=== PATIENT | female | born 1960 | race Caucasian/White ===

== ENCOUNTER 2016-12-25 12:55 | Emergency (ER) | payer BC, MEDICAID ==
[~2016-12-25] VITALS: Wt 49.0 kg
[~2016-12-25 12:55] MED LIST: FENO48TA4 PO; FER325 PO
[2016-12-25] MEDS ORDERED: KETOROLAC 15 MG INJ IV STA (13:13)
[2016-12-25] MEDS ORDERED: SOD CHLORIDE 0.9% 500 ML IV STA (13:13)
[2016-12-25] MEDS ORDERED: ONDANSETRON 4 MG INJ IV STA (13:13)
[2016-12-25] MEDS ORDERED: DICYCLOMINE 10 MG CAP PO ONE (13:30)
--- NOTE | 2016-12-25 13:33 | ERD ---
ER Documentation Chief Complaint Date/Time DATE: 12/25/16 TIME: 13:30 Chief Complaint VOMITING, DIARRHEA, MILD ABD PAIN, ONSET 1 DAY HPI 56-year-old female who has a history of hypertension presents to the emergency room complaining of nausea vomiting and diarrhea. A small offset printer was used. She describes approximately 1-2 days of symptoms including nonbloody nonbilious emesis, cramping, periumbilical abdominal discomfort with the associated loose stools. No recent travel, sick contacts, antibiotics, no abdominal surgical history. Pain is mild, 2 out of 10 currently. ROS All systems reviewed and are negative except as per history of present illness. Medications Home Meds Active Scripts Ondansetron (Ondansetron Odt) 4 Mg Tab.rapdis, 4 MG PO Q6H Y for NAUSEA AND/OR VOMITING, #30 TAB Prov:JOSEPH ZAMAN MD 12/25/16 Dicyclomine Hcl* (Bentyl*) 10 Mg Capsule, 10 MG PO QID Y for abdominal cramping , #30 CAP Prov:JOSEPH ZAMAN MD 12/25/16 Ferrous Sulfate* (Ferrous Sulfate*) 325 Mg Tabec, 325 MG PO BID, #60 TAB 2 Refills Prov:GALDINO YOU S. 05/16/16 Fenofibrate Nanocrystallized* (Fenofibrate*) 48 Mg Tablet, 48 MG PO DAILY for 30 Days, #30 TAB 1 Refill Prov:GALDINO YOU S. 05/16/16 Allergies Allergies: Coded Allergies: No Known Allergy (Unverified , 12/25/16) PMhx/Soc History of Surgery: Yes (hysterectomy) Anesthesia Reaction: No Hx Neurological Disorder: No Hx Respiratory Disorders: No Hx Cardiac Disorders: No Hx Psychiatric Problems: No Hx Miscellaneous Medical Probl: No Hx Alcohol Use: No Hx Substance Use: No Hx Tobacco Use: No Smoking Status: Never smoker FmHx Family History: No diabetes Physical Exam Vitals Vital Signs Date Time Temp Pulse Resp B/P Pulse Ox O2 Delivery O2 Flow Rate FiO2 12/25/16 12:57 98.1 106 18 197/87 98 Physical Exam General: Well developed, well nourished, no acute distress Head: Normocephalic, atraumatic. Eyes: Pupils equally reactive, EOM intact ENT: Moist mucous membranes Neck: Supple, no lymphadenopathy Respiratory: Lungs clear bilaterally, no distress Cardiovascular: RRR, no murmurs, rubs, or gallops Abdominal: Soft, non-tender, non-distended, no peritoneal signs, negative Felipe sign, no tenderness to McBurney's point : Deferred MSK: No edema, no unilateral swelling, 5/5 strength Neurologic: Alert and oriented, moving all extremities, normal speech, no focal weakness, no cerebellar signs Skin: No rash Psych: Normal mood Results 24 hrs Current Medications Medications (Trade) Dose Ordered Sig/Jamin Route PRN Reason Start Time Stop Time Status Last Admin Dose Admin Sodium Chloride (NS) 500 ml @ 500 mls/hr Q1H STAT IV 12/25/16 13:13 12/25/16 14:12 DC 12/25/16 13:32 Ondansetron HCl (Zofran Inj) 4 mg ONCE STAT IV 12/25/16 13:13 12/25/16 13:28 DC 12/25/16 13:32 Ketorolac Tromethamine (Toradol) 15 mg ONCE STAT IV 12/25/16 13:13 12/25/16 13:28 DC 12/25/16 13:32 Dicyclomine HCl (Bentyl) 10 mg ONCE ONCE PO 12/25/16 13:30 12/25/16 13:31 DC Procedures/MDM MEDICAL DECISION MAKING: Patient's blood pressure was elevated (>120/80) but appears stable without evidence of hypertensive emergency or urgency. The patient was counseled about the risks of hypertension and urged to pursue outpatient monitoring and therapy within a week with their primary care physician. The patient's symptoms are very consistent with likely viral process. The patient has a benign abdominal exam without a fever without signs of significant dehydration. She exhibits no clinical signs or symptoms that would be concerning for acute intra-abdominal process such as bowel obstruction, acute appendicitis or hepatobiliary process. The patient is resting comfortably and grossly asymptomatic currently. I believe gentle hydration, symptom control be most appropriate for this patient. I do not believe the laboratory testing is necessary, no indication for CT imaging. I did discuss return precautions including worsening pain, migratory pain, fever and the patient verbalized understanding. No indication for antibiotics. ER COURSE: The patient was given IV fluids, oral Bentyl, Toradol, Zofran, repeat abdominal exam was again benign. At this time the patient is safe for discharge with close primary care follow-up and return precautions as discussed above. I kept the patient and/or family informed of laboratory and diagnostic imaging results throughout the emergency room course. DISPOSITION PLAN: We discussed follow up with the patient's primary care doctor within 24 to 48 hours as needed. We also discussed return to the emergency room for worsening symptoms or worsening condition. Outpatient referral: None required Discharge Medications: Gilles Duenas Departure Diagnosis: Primary Impression: Nausea, vomiting, and diarrhea Additional Impression: Periumbilical abdominal pain Condition: JOSEPH Sweeney MD Dec 25, 2016 13:33
[2016-12-25] MEDS ORDERED: DICY10CA60 PO (14:18)
[2016-12-25] MEDS ORDERED: ONDA4TAB14 PO (14:18)
== END 2016-12-25 14:35 | disposition home or self-care (01) ==
LOC: E/R 12:55
DX: R11.2 Nausea with vomiting, unspecified (principal); R19.7 Diarrhea, unspecified; R10.33 Periumbilical pain
CPT/HCPCS: 96374; 96375; J1885; J2405; J7040; Z7502; Z7610

== ENCOUNTER 2017-02-11 19:31 | Inpatient (IN) | payer BC ==
[~2017-02-11] VITALS: Ht 162.6 cm; Wt 51.5 kg
[~2017-02-11 19:31] MED LIST changes: +DICY10CA60 PO; +ONDA4TAB14 PO
[2017-02-11] MEDS ORDERED: SOD CHLORIDE 0.9% 1,000 ML IV STA ×2 (20:00→22:08)
[2017-02-11] MEDS ORDERED: KETOROLAC 30 MG INJ IV STA (20:00)
[2017-02-11 20:42] LABS: HEMATOCRIT 38.3 % (37.0-47.0); HEMOGLOBIN 12.8 g/dl (12.0-16.0); MEAN CORPUSCULAR HEMOGLOBIN 29.2 pg (29.0-33.0); MEAN CORPUSCULAR HGB CONC 33.4 g/dl (32.0-37.0); MEAN CORPUSCULAR VOLUME 87.2 fl (82.0-101.0); MEAN PLATELET VOLUME 12.8 fl (7.4-10.4); PLATELET COUNT 115 10^3/UL (140-415); RED BLOOD COUNT 4.39 10^6/ul (4.20-5.40); RED CELL DISTRIBUTION WIDTH 13.5 % (11.5-14.5)
--- NOTE | 2017-02-11 20:50 | RADRPT ---
PROCEDURE: Ultrasound of the left lower extremity venous system. CLINICAL INDICATION: Left leg pain and swelling, deep venous thrombosis TECHNIQUE: Russ scale with and without compression, color doppler, spectral doppler of the venous system of the left lower extremity was performed. Venous augmentation maneuvers were utilized. COMPARISON: No prior studies are available for comparison. FINDINGS: Common femoral vein: Patent. Femoral vein: Patent. Popliteal vein: Patent. Calf veins: Patent. No soft tissue abnormalities are identified. IMPRESSION: No evidence of a deep vein thrombosis within the left lower extremity. RPTAT: AADD .Maciel Genao MD, MD Date Time Electronically viewed and signed by .Maciel Genao MD, on 02/11/2017 20:49 .B/
[2017-02-11 20:53] LABS: POSITIVE DIFF @See below
[2017-02-11 21:10] LABS: ADD UMIC YES; UR ASCORBIC ACID NEGATIVE (NEGATIVE); UR BILIRUBIN (Dip) NEGATIVE (NEGATIVE); UR BLOOD (Dip) NEGATIVE (NEGATIVE); UR CLARITY CLEAR (CLEAR); UR COLOR YELLOW (YELLOW); UR GLUCOSE (Dip) 3+ mg/dL (NEGATIVE); UR KETONES (Dip) NEGATIVE (NEGATIVE); UR LEUKOCYTE ESTERASE (Dip) NEGATIVE Leu/ul (NEGATIVE); UR NITRITE (Dip) NEGATIVE (NEGATIVE); UR RBC 1 /HPF (0-5); UR SPECIFIC GRAVITY (Dip) 1.017 (1.003-1.030); UR TOTAL PROTEIN (Dip) 1+ mg/dl (NEGATIVE); UR UROBILINOGEN (Dip) NEGATIVE (NEGATIVE)
[2017-02-11 21:17] LABS: ALBUMIN 4.1 g/dl (3.3-4.9); ALBUMIN/GLOBULIN RATIO 1.24; BILIRUBIN,INDIRECT 2.6 mg/dl (0-1.1); BILIRUBIN,TOTAL 2.6 mg/dl (0.2-1.3); CALCIUM 8.8 mg/dl (8.4-10.2); CREATININE 0.72 mg/dl (0.44-1.00); POTASSIUM 4.3 mmol/L (3.5-5.1); TOTAL PROTEIN 7.4 g/dl (6.1-8.1)
[2017-02-11] MEDS ORDERED: SOD CHLORIDE 0.9% 600 ML IV STA (21:17)
[2017-02-11] MEDS ORDERED: VANCOMYCIN 1 GM (PMX) 250 ML IVPB SCH (21:30)
[2017-02-11] MEDS ORDERED: PIPER-TAZO 3.375 GM IV (PMX) 100 ML IVPB ONE (21:30)
[2017-02-11 21:41] LABS: METAMYELOCYTES %M 2 % (0-0); MONOCYTE # 0.3 10^3/ul (0.3-0.9); MONOCYTES % (M) 2 % (0-11); NEUTROPHIL # 10.7 10^3/ul (1.6-7.5)
[2017-02-11] MEDS ORDERED: ACETAMINOPHEN 500 MG TAB PO STA (22:09)
[2017-02-11] MEDS ORDERED: SOD CHLORIDE 0.9% 1,000 ML IV SCH (22:11)
[2017-02-11] MEDS ORDERED: INSULIN LISPRO 100 UNIT/ML VIAL SC STA (22:17)
--- NOTE | 2017-02-11 22:18 | ERA ---
ER Documentation Chief Complaint Date/Time DATE: 02/11/17 TIME: 22:12 Chief Complaint fever x 2 days, left leg pain x 2 days HPI This is a 56-year-old female with a history of diabetes on insulin who presents to the emergency room for evaluation of left leg pain for the past 2 days. She also states that she has had a fever on and off for the past 2 days and has been taking Tylenol. Her last dose of Tylenol was this morning. The patient localizes the pain to the left leg and denies any radiation of the pain and denies any trauma associated with this. She came to the ER today for evaluation. ROS All systems reviewed and are negative except as per history of present illness. Medications Home Meds Active Scripts Ondansetron (Ondansetron Odt) 4 Mg Tab.rapdis, 4 MG PO Q6H Y for NAUSEA AND/OR VOMITING, #30 TAB Prov:JOSEPH ZAMAN MD 12/25/16 Dicyclomine Hcl* (Bentyl*) 10 Mg Capsule, 10 MG PO QID Y for abdominal cramping , #30 CAP Prov:JOSEPH ZAMAN MD 12/25/16 Ferrous Sulfate* (Ferrous Sulfate*) 325 Mg Tabec, 325 MG PO BID, #60 TAB 2 Refills Prov:GALDINO YOU S. 05/16/16 Fenofibrate Nanocrystallized* (Fenofibrate*) 48 Mg Tablet, 48 MG PO DAILY for 30 Days, #30 TAB 1 Refill Prov:GALDINO YOU SCandelaria 05/16/16 Allergies Allergies: Coded Allergies: No Known Allergy (Unverified , 12/25/16) PMhx/Soc History of Surgery: Yes (hysterectomy, left thigh sx x3 year ago at [facility]) Anesthesia Reaction: No Hx Neurological Disorder: No Hx Respiratory Disorders: No Hx Cardiac Disorders: Yes (HTN) Hx Psychiatric Problems: No Hx Miscellaneous Medical Probl: Yes (DM 2) Hx Alcohol Use: No Hx Substance Use: No Hx Tobacco Use: No Smoking Status: Never smoker Physical Exam Vitals Vital Signs Date Time Temp Pulse Resp B/P Pulse Ox O2 Delivery O2 Flow Rate FiO2 02/11/17 19:33 100.1 108 20 122/60 99 Physical Exam INITIAL VITAL SIGNS: Reviewed by me GENERAL: The patient is well developed and appropriate for usual state of health in no apparent distress, however is warm to touch HEENT: Pupils equal, round, and reactive to light. EOMI. There is no scleral icterus. NECK: C-spine is soft and supple, there is no meningismus. There is no cervical lymphadenopathy. LUNGS: Clear to auscultation bilaterally. There are no rales, wheezes or rhonchi. HEART: Tachycardic, no murmurs, clicks, rubs or gallops. ABDOMEN: Soft, non-tender, non-distended. There are bowel sounds in all four quadrants. No rebound or guarding. EXTREMITIES: There is no peripheral cyanosis or edema. No focal swelling or erythema. NEUROLOGICAL: The patient moves all four extremities with 5/5 strength. Cranial nerves II - XII are intact. Normal gait. Alert and oriented SKIN: Cellulitis of left thigh extending to the left mid calf, no skin HEME/LYMPHATIC: There is no evidence of excessive bruising or lymphedema. PSYCHIATRIC: The patient does not appear anxious or depressed. Result Diagram: 02/11/17200902/11/172009 Results 24 hrs Laboratory Tests Test 02/11/17 19:45 02/11/17 20:10 Urine Color YELLOW Urine Clarity CLEAR Urine pH 5.0 Urine Specific [place] 1.017 Urine Ketones NEGATIVEmg/dL Urine Nitrite NEGATIVEmg/dL Urine Bilirubin NEGATIVEmg/dL Urine Urobilinogen NEGATIVEmg/dL Urine Leukocyte Esterase NEGATIVELeu/ul Urine Microscopic RBC 1/HPF Urine Microscopic WBC 3/HPF Urine Hemoglobin NEGATIVEmg/dL Urine Glucose 3+mg/dL Urine Total Protein 1+mg/dl White Blood Count 17.010^3/ul Red Blood Count 4.3910^6/ul Hemoglobin 12.8g/dl Hematocrit 38.3% Mean Corpuscular Volume 87.2fl Mean Corpuscular Hemoglobin 29.2pg Mean Corpuscular Hemoglobin Concent 33.4g/dl Red Cell Distribution Width 13.5% Platelet Count 61527^3/UL Mean Platelet Volume 12.8fl Neutrophils % % Segmented Neutrophils % (Manual) 63% Band Neutrophils % (Manual) 33% Lymphocytes % % Monocytes % % Monocytes % (Manual) 2% Eosinophils % % Basophils % % Metamyelocytes % (manual) 2% Nucleated Red Blood Cells % 0.0/100WBC Neutrophils # 10.710^3/ul Neutrophils # (Manual) 1210^3/ul Band Neutrophils # 5.610^3/ul Lymphocytes # 10^3/ul Monocytes # 0.310^3/ul Absolute Monocytes (Manual) 0.310^3/ul Eosinophils # 10^3/ul Basophils # 10^3/ul Metamyelocytes # 0.310^3/ul Nucleated Red Blood Cells # 10^3/ul Platelet Morphology Comment Macrocytosis OCCASIONAL Sodium Level 133mmol/L Potassium Level 4.3mmol/L Chloride Level 88mmol/L Carbon Dioxide Level 25mmol/L Anion Gap 24 Blood Urea Nitrogen 24mg/dl Creatinine 0.72mg/dl Glucose Level 280mg/dl Lactic Acid Level 6.6mmol/L Calcium Level 8.8mg/dl Total Bilirubin 2.6mg/dl Direct Bilirubin 0.00mg/dl Indirect Bilirubin 2.6mg/dl Aspartate Amino Transf (AST/SGOT) 36IU/L Alanine Aminotransferase (ALT/SGPT) 48IU/L Alkaline Phosphatase 58IU/L Total Protein 7.4g/dl Albumin 4.1g/dl Globulin 3.30g/dl Albumin/Globulin Ratio 1.24 Lipase 32U/L Current Medications Medications (Trade) Dose Ordered Sig/Jamin Route PRN Reason Start Time Stop Time Status Last Admin Dose Admin Sodium Chloride (NS) 1,000 ml @ 1,000 mls/hr Q1H STAT IV 02/11/17 20:00 02/11/17 20:59 DC 02/11/17 20:34 Ketorolac Tromethamine 30 mg 30 mg ONCE STAT IV 02/11/17 20:00 02/11/17 20:01 DC 02/11/17 20:34 Sodium Chloride 600 ml @ 1,000 mls/hr Q36M STAT IV 02/11/17 21:17 02/11/17 21:52 DC Vancomycin HCl 250 ml @ 125 mls/hr ONCE IVPB 02/11/17 21:30 02/11/17 23:29 02/11/17 21:52 Piperacillin Sod/ Tazobactam Sod 100 ml @ 200 mls/hr ONCE ONCE IVPB 02/11/17 21:30 02/11/17 21:59 DC Sodium Chloride (NS) 1,000 ml @ 1,000 mls/hr Q1H STAT IV 02/11/17 22:08 02/11/17 23:07 Acetaminophen (Tylenol Tab) 1,000 mg ONCE STAT PO 02/11/17 22:09 02/11/17 22:10 DC Procedures/MDM EKG: Rate/Rhythm: Sinus tachycardia QRS, ST, T-waves: [No changes consistent w/ acute ischemia] Impression: [No evidence of ischemia or arrhythmia] Chest X-ray 1V Interpreted by me: Soft Tissue: No acute abnormalities Bones: No acute abnormalities Mediastinum/Cardiac Silhouette/Lungs: [No acute abnormalities] X-ray Femur 2V Interpreted by me: Bones: No fracture Joints: No dislocation Foreign body: None, no subcutaneous gas Ultrasound left lower extremity: No DVT Patient's infectious symptoms have not stabilized and the patient is at risk of rapid decompensation. The patient will be admitted for careful hydration, antibiotic therapy, and infectious source control. Severe Sepsis Assessment: Infectious Source: Cellulitis End organ damage indicated by: [Lactate > 2.0 mmol/L Hypotension( SBP < 90 or >40 mmHG drop or MAP < 65) Acute Resp Failure (sat < 92% w/o oxygen) [employer] > 2.0 INR > 1.5 Plt < 100 Bili > 2] Severe Sepsis Managment: Blood Cultures X 2 before broad spectrum antibiotics initiated within 3 hours of recognition. 30 ml/kg NS bolus Completed Initial Lactate: 6.6 Repeat Lactate pending Critical Care: Excluding all billable procedures Time: 38 minutes Treatments/Evaluations: Emergent fluid management, while maintaining close respiratory support. Immediate broad spectrum antibiotic therapy. Simultaneous assessment for possible sources in order to direct therapy. Consideration for invasive and chemical support to prevent respiratory or cardiac collapse. Septic Shock Assessment (1 hour post 30 ml/kg fluid bolus): Hypotension (SBP < 90 or 40 mmHg drop, MAP < 65): [No] Lactic acid > 4.0 yes Perfusion Reassessment for Septic Shock: 2 hours after initial evaluation Temp 1..01, Pulse 99], RR16BP 118/74 Heart Exam: [Tachycardic] Lung Exam: [No Crackles] Capillary Refill: [Delayed] Peripheral Pulses: [Radially present] Skin: Warm, dry Hypotensive Treatment (not required for isolated lactic acid elevation): Comfort Care: No Central LIne: Not necessary Vasopressor started: None I considered further perfusion assessment with CVP measurement, SCVO2, bedside ultrasound volume assessment, passive leg raise, trial of further fluid bolus. And preceded with further fluid bolus Accepting Care Team: Current data and ongoing care discussed. Time: Time of admission Primary Provider: Jaimie miner Outstanding Data: none This is a 56-year-old female who presents to the emergency room for evaluation of left leg pain. When I evaluated this patient she was febrile, and tachycardic. The patient did have an erythematous leg consistent with cellulitis that was blanching with no skin sloughing. A septic workup was started on this patient. This patient's lab work demonstrates a white blood cell count 17,000 however her lactic acid was greater than 6. The patient was given greater than 30 cc/kg of IV normal saline. She was started on vancomycin and Zosyn in the emergency room. Femur x-ray does not reveal any signs of subcutaneous gas at this time. This patient is hemodynamically stable with a mean arterial pressure greater than 65 with no need for vasopressors. The patient will be placed in for admission at this time for IV antibiotics, IV fluids, and reassessment tomorrow morning. The patient has no signs of compartment syndrome at this time, she has got equal pulses distally and her ultrasound does not show any signs of DVT. The patient will be admitted to Dr. Kali miner Departure Diagnosis: Primary Impression: Severe sepsis Additional Impression: Left leg cellulitis Condition: Stable VERONICA TORRES DO Feb 11, 2017 22:18
--- NOTE | 2017-02-11 22:23 | RADRPT ---
PROCEDURE: XR Femur. CLINICAL INDICATION: Pain. TECHNIQUE: AP and lateral views of the left femur were obtained. COMPARISON: No prior studies are available for comparison. FINDINGS: No acute fracture or dislocation is identified. Mild diffuse soft tissue swelling is noted. Surgical clips are noted overlying left visualized pelvis. IMPRESSION: 1. No acute fracture or dislocation. 2. Mild diffuse soft tissue swelling. RPTAT: HFN .Esequiel Siu MD, MD Date Time Electronically viewed and signed by .Esequiel Siu MD, on 02/11/2017 22:23 .N/
[2017-02-11] MEDS ORDERED: ACETAMINOPHEN 325 MG TAB PO PRN (22:30)
[2017-02-11] MEDS ORDERED: ONDANSETRON 4 MG INJ IV PRN (22:30)
--- NOTE | 2017-02-11 23:24 | RADRPT ---
PROCEDURE: XR Chest. CLINICAL INDICATION: Sepsis TECHNIQUE: Single AP portable chest. COMPARISON: No prior Chest x-ray FINDINGS: The cardiomediastinal silhouette is within normal limits of size. The lungs are clear without pleur al effusion or focal consolidation. No pneumothorax. The osseous structures and soft tissues are unr emarkable. IMPRESSION: 1. No evidence for active cardiopulmonary disease. RPTAT:AAJJ Leslye Traore Physician Date Time Electronically viewed and signed by Leslye Traore Physician on 02/11/2017 23:23 RADHA/
[2017-02-11 23:32] VITALS: TEMP 98.1
[2017-02-11] MEDS ORDERED: ACET-141 PO (23:52)
[2017-02-11] MEDS ORDERED: ASPI-664 PO (23:52)
[2017-02-11] MEDS ORDERED: SS SC (23:52)
[2017-02-12 00:22] VITALS: BP 99/55; RESP 16
[2017-02-12 00:37] VITALS: Ht 162.6 cm; Wt 51.5 kg
[2017-02-12] MEDS ORDERED: INSULIN ASPART [NOVOLOG] 3 ML PEN SC STA (01:59)
[2017-02-12] MEDS ORDERED: morphine 2 MG INJ IV PRN (02:00)
[2017-02-12] MEDS ORDERED: ONDANSETRON 4 MG INJ IV PRN (02:00)
[2017-02-12] MEDS ORDERED: SOD CHLORIDE 0.9% 1,000 ML IV SCH (02:00)
[2017-02-12] MEDS: ACCU-CHEK XX SCH (02:00)
[2017-02-12] MEDS ORDERED: ACCU-CHEK XX SCH (02:00)
[2017-02-12 02:10] VITALS: BP 89/51; RESP 16
[2017-02-12] MEDS: CEFTRIAXONE 1 GM/50 ML (PMX) 50 ML IVPB SCH (02:39)
[2017-02-12] MEDS ORDERED: GLUCAGON 1 MG INJ IM PRN (03:00)
[2017-02-12] MEDS ORDERED: GLUCOSE GEL 15 GRAM TUBE PO PRN ×2 (03:00)
[2017-02-12] MEDS ORDERED: GLUCOSE GEL 15 GRAM TUBE BUCCAL PRN (03:00)
[2017-02-12] MEDS ORDERED: DEXTROSE 50% 50 ML SYRINGE IV PRN ×2 (03:00)
[2017-02-12 05:45] LABS: ABNORMAL IP MESSAGE 1; HEMATOCRIT 32.4 % (37.0-47.0); HEMOGLOBIN 10.8 g/dl (12.0-16.0); MEAN CORPUSCULAR HEMOGLOBIN 28.6 pg (29.0-33.0); MEAN CORPUSCULAR HGB CONC 33.3 g/dl (32.0-37.0); MEAN CORPUSCULAR VOLUME 85.9 fl (82.0-101.0); MEAN PLATELET VOLUME 13.2 fl (7.4-10.4); PLATELET COUNT 108 10^3/UL (140-415); RED BLOOD COUNT 3.77 10^6/ul (4.20-5.40); RED CELL DISTRIBUTION WIDTH 13.9 % (11.5-14.5); WHITE BLOOD COUNT 12.6 10^3/ul (4.8-10.8)
[2017-02-12 06:02] LABS: POSITIVE DIFF @See below
[2017-02-12 06:09] LABS: ALBUMIN/GLOBULIN RATIO 1.03; BILIRUBIN,INDIRECT 1.8 mg/dl (0-1.1); BILIRUBIN,TOTAL 1.8 mg/dl (0.2-1.3); CALCIUM 7.3 mg/dl (8.4-10.2); CREATININE 0.69 mg/dl (0.44-1.00); POTASSIUM 3.8 mmol/L (3.5-5.1); TOTAL PROTEIN 5.9 g/dl (6.1-8.1)
[2017-02-12] MEDS: PANTOPRAZOLE (EC) 40 MG TAB PO SCH (06:11)
[2017-02-12 07:51] LABS: ANISOCYTOSIS 1+ (0-0); BURR CELLS 1+ (0-0); MICROCYTOSIS 1+ (0-0); MONOCYTES % (M) 1 % (0-11); PLATELET ESTIMATE DECREASED; POIKILOCYTOSIS 1+ (0-0)
[2017-02-12 07:58] VITALS: BP 98/54; RESP 16
[2017-02-12] MEDS: ASPIRIN (EC) 81 MG TAB PO SCH (08:17)
[2017-02-12] MEDS: INSULIN ASPART [NOVOLOG] 3 ML PEN SC SCH ×7 (08:24→21:00)
[2017-02-12] MEDS: ENOXAPARIN 40 MG/0.4 ML SYG SC SCH (08:24)
[2017-02-12] MEDS: INSULIN GLARGINE [LANtus] 3 ML PEN SC SCH (08:25)
[2017-02-12 09:57] LABS: BASOPHILS % 0.3 % (0.0-2.0); EOSINOPHILS % 0.1 % (0.0-7.0); LYMPHOCYTES # 0.5 10^3/ul (0.8-2.9); MONOCYTES % 1.7 % (0.0-11.0)
[2017-02-12 10:02] LABS: NEUTROPHILS % 91.5 % (39.0-77.0)
[2017-02-12 10:50] LABS: EOSINOPHILS # 0.1 10^3/ul (0.0-0.5); MONOCYTE # 0.1 10^3/ul (0.3-0.9); NEUTROPHIL # 8.7 10^3/ul (1.6-7.5)
[2017-02-12 13:42] VITALS: BP 113/52; PULSE 121; RESP 20
[2017-02-12] MEDS: ACETAMINOPHEN 325 MG TAB PO PRN ×2 (13:46→21:17)
[2017-02-12] MEDS ORDERED: VANCOMYCIN IV PER PHARMACY XX SCH (14:30)
--- NOTE | 2017-02-12 14:31 | CONS ---
Date/Time of Note Date/Time of Note DATE: 02/12/17 TIME: 14:30 Consultation Date/Type/Reason Admit Date/Time Feb 11, 2017 at 22:12 Date of Consultation: Feb 12, 2017 Type of Consultation: id Reason for Consultation Antibiotic management Social History Smoking Status: Never smoker Exam/Review of Systems Vital Signs Vitals Vital Signs Date Time Temp Pulse Resp B/P Pulse Ox O2 Delivery O2 Flow Rate FiO2 02/12/17 13:42 101.1 121 20 113/52 97 Nasal Cannula 02/12/17 06:21 1.0 Intake and Output 02/11/17 02/11/17 02/12/17 15:00 23:00 07:00 Intake Total 2000 ml Balance 2000 ml Results Result Diagram: 02/12/17 0516 02/12/17 0516 Results 24 hrs Laboratory Tests Test 02/11/17 19:45 02/11/17 20:10 02/11/17 23:29 02/12/17 05:16 Urine Color YELLOW Urine Clarity CLEAR Urine pH 5.0 Urine Specific [place] 1.017 Urine Ketones NEGATIVE Urine Nitrite NEGATIVE Urine Bilirubin NEGATIVE Urine Urobilinogen NEGATIVE Urine Leukocyte Esterase NEGATIVE Urine Microscopic RBC 1 Urine Microscopic WBC 3 Urine Hemoglobin NEGATIVE Urine Glucose 3+ H Urine Total Protein 1+ H White Blood Count 17.0 #H 12.6 #H Red Blood Count 4.39 3.77 L Hemoglobin 12.8 10.8 L Hematocrit 38.3 32.4 L Mean Corpuscular Volume 87.2 85.9 Mean Corpuscular Hemoglobin 29.2 28.6 L Mean Corpuscular Hemoglobin Concent 33.4 33.3 Red Cell Distribution Width 13.5 13.9 Platelet Count 115 L 108 L Mean Platelet Volume 12.8 #H 13.2 H Neutrophils % 91.5 H Segmented Neutrophils % (Manual) 63 69 Band Neutrophils % (Manual) 33 H 25 H Lymphocytes % 4.0 L Monocytes % 1.7 Monocytes % (Manual) 2 1 Eosinophils % 0.1 Basophils % 0.3 Metamyelocytes % (manual) 2 H Nucleated Red Blood Cells % 0.0 0.0 Neutrophils # 10.7 H 8.7 H Neutrophils # (Manual) 12 H 9 H Band Neutrophils # 5.6 H 3.1 H Lymphocytes # 0.5 L Monocytes # 0.3 0.1 L Absolute Monocytes (Manual) 0.3 0.1 L Eosinophils # 0.1 Basophils # 0.0 Metamyelocytes # 0.3 H Nucleated Red Blood Cells # 0.0 Platelet Morphology Comment Macrocytosis OCCASIONAL Sodium Level 133 L 135 Potassium Level 4.3 3.8 Chloride Level 88 L 98 # Carbon Dioxide Level 25 24 Anion Gap 24 H 17 #H Blood Urea Nitrogen 24 H 22 H Creatinine 0.72 0.69 Glucose Level 280 H 208 Lactic Acid Level 6.6 *H 2.5 *H Calcium Level 8.8 7.3 L Total Bilirubin 2.6 H 1.8 H Direct Bilirubin 0.00 0.00 Indirect Bilirubin 2.6 H 1.8 H Aspartate Amino Transf (AST/SGOT) 36 30 Alanine Aminotransferase (ALT/SGPT) 48 45 Alkaline Phosphatase 58 57 Total Protein 7.4 5.9 #L Albumin 4.1 3.0 #L Globulin 3.30 H 2.90 Albumin/Globulin Ratio 1.24 1.03 Lipase 32 Lymphocytes % (Manual) 4 L Eosinophils % (Manual) 1.0 Absolute Lymphocytes (Manual) 0.5 L Platelet Estimate DECREASED Poikilocytosis 1+ Anisocytosis 1+ Microcytosis 1+ Hemoglobin A1c 8.8 H Test 02/12/17 08:08 02/12/17 11:57 02/12/17 12:11 Bedside Glucose 195 150 Lactic Acid Level 2.8 *H Medications Medications Current Medications Sodium Chloride (NS) 1,000 ml @ 50 mls/hr Q20H IV ; Start 02/12/17 at 02:00 Pantoprazole 40 mg 40 mg DAILY@06 PO Last administered on 02/12/17 06:11; Admin Dose 40 MG; Start 02/12/17 at 06:00 Ceftriaxone Sodium (Rocephin) 50 ml @ 100 mls/hr Q24H IVPB Last administered on 02/12/17 02:39; Admin Dose 100 MLS/HR; Start 02/12/17 at 02:00 Enoxaparin Sodium (Lovenox) 40 mg DAILY SC Last administered on 02/12/17 08:24 ; Admin Dose 40 MG; Start 02/12/17 at 09:00 Morphine Sulfate (morphine) 2 mg Q4H PRN IV PAIN; Start 02/12/17 at 02:00 Ondansetron HCl (Zofran Inj) 4 mg Q4H PRN IV NAUSEA AND/OR VOMITING; Start at 02:00 Aspirin (Halfprin) 81 mg DAILY PO Last administered on 02/12/17 08:17; Admin Dose 81 MG; Start 02/12/17 at 09:00 Acetaminophen (Tylenol Tab) 650 mg Q6H PRN PO PAIN AND OR ELEVATED TEMP Last administered on 02/12/17 13:46; Admin Dose 650 MG; Start 02/12/17 at 02:00 Insulin Glargine (Lantus) 10 unit DAILY@08 SC Last administered on 02/12/17 08 :25; Admin Dose 10 UNIT; Start 02/12/17 at 08:00 Diagnostic Test (Pha) (Accu-Chek) 1 ea 02 XX ; Start 02/12/17 at 02:00 Diagnostic Test (Pha) (Accu-Chek) 1 ea 02 XX ; Start 02/12/17 at 02:00 Miscellaneous Information 1 ea NOTE XX ; Start 02/12/17 at 03:00 Glucose (Glutose) 15 gm Q15M PRN PO DECREASED GLUCOSE; Start 02/12/17 at 03:00 Glucose (Glutose) 22.5 gm Q15M PRN PO DECREASED GLUCOSE; Start 02/12/17 at 03: 00 Dextrose (D50w Syringe) 25 ml Q15M PRN IV DECREASED GLUCOSE; Start 02/12/17 at 03:00 Dextrose (D50w Syringe) 50 ml Q15M PRN IV DECREASED GLUCOSE; Start 02/12/17 at 03:00 Glucagon (Glucagen) 1 mg Q15M PRN IM DECREASED GLUCOSE; Start 02/12/17 at 03:00 Glucose (Glutose) 15 gm Q15M PRN BUCCAL DECREASED GLUCOSE; Start 02/12/17 at 03 :00 BHARAT RIVERA MD Feb 12, 2017 14:31
--- NOTE | 2017-02-12 15:11 | HP ---
Date/Time of Note Date/Time of Note DATE: 02/12/17 TIME: 15:06 Assessment/Plan VTE Prophylaxis VTE Prophylaxis Intervention: ambulation Lines/Catheters IV Catheter Type (from Nrs): Peripheral IV Urinary Cath still in place: No Assessment/Plan Chief Complaint/Hosp Course 1. Left hip cellulitis with SIRS 2. Dm type II controlled 3. Anemia 4. Dehydration Problems: Assessment/Plan 1. Continue antibiotics 2. Dr Kim for the ID consult 3. Dr Herndon 4. old record from [facility]/ROS Admit Date/Time Admit Date/Time Feb 11, 2017 at 22:12 Hx of Present Illness 56-year-old female with a history of diabetes mellitus presents to the emergency room for evaluation of left leg pain for 2 days. She has a history of cramps. She had a fever on and off for the past 2 days and has been taking Tylenol. ROS Constitutional: no complaints Respiratory: cough, no complaints, pain, No other, No pleuritic pain, No shortness of breath, No sputum, No wheezing Cardiovascular: chest pain, lightheadedness, no complaints, orthopenea, palpitations, No edema, No other, No paroxysmal nocturnal dyspnea Genitourinary: bleeding, discharge, dysuria, No flank pain, No hematuria, No no complaints, No other Musculoskeletal: restricted range of motion (left knee), swelling, No bone/joint pain, No neck pain, No no complaints, No other Endocrine: weight change, No dry skin, No no complaints, No other, No polydypsia, No polyuria, No temp intolerance PMH/Family/Social Past Medical History Medical History: diabetes, other (cramps in legs) Past Surgical History Past Surgical Hx: other (2014 I and left hip) Family History Significant Family History: no pertinent family hx Social History Alcohol Use: none Smoking Status: Never smoker Drug Use: none Exam/Review of Systems Vital Signs Vitals Vital Signs Date Time Temp Pulse Resp B/P Pulse Ox O2 Delivery O2 Flow Rate FiO2 02/12/17 13:42 101.1 121 20 113/52 97 Nasal Cannula 02/12/17 06:21 1.0 Intake and Output 02/11/17 02/11/17 02/12/17 15:00 23:00 07:00 Intake Total 2000 ml Balance 2000 ml Exam Constitutional: alert, oriented ENMT: nl external ears & nose Neck: supple Respiratory: clear to auscultation Cardiovascular: regular rate and rhythm Gastrointestinal: soft Genitourinary - Female: nl external genitalia Musculoskeletal: joint tenderness (left knee), range of motion (left knee decreased), swelling (left leg) Labs Result Diagram: 02/12/1751502/12/17515 Medications Medications Current Medications Sodium Chloride (NS) 1,000 ml @ 50 mls/hr Q20H IV ; Start 02/12/17 at 02:00 Pantoprazole 40 mg 40 mg DAILY@06 PO Last administered on 02/12/17 06:11; Admin Dose 40 MG; Start 02/12/17 at 06:00 Ceftriaxone Sodium (Rocephin) 50 ml @ 100 mls/hr Q24H IVPB Last administered on 02/12/17 02:39; Admin Dose 100 MLS/HR; Start 02/12/17 at 02:00 Enoxaparin Sodium (Lovenox) 40 mg DAILY SC Last administered on 02/12/17 08:24 ; Admin Dose 40 MG; Start 02/12/17 at 09:00 Morphine Sulfate (morphine) 2 mg Q4H PRN IV PAIN; Start 02/12/17 at 02:00 Ondansetron HCl (Zofran Inj) 4 mg Q4H PRN IV NAUSEA AND/OR VOMITING; Start at 02:00 Aspirin (Halfprin) 81 mg DAILY PO Last administered on 02/12/17 08:17; Admin Dose 81 MG; Start 02/12/17 at 09:00 Acetaminophen (Tylenol Tab) 650 mg Q6H PRN PO PAIN AND OR ELEVATED TEMP Last administered on 02/12/17 13:46; Admin Dose 650 MG; Start 02/12/17 at 02:00 Insulin Glargine (Lantus) 10 unit DAILY@08 SC Last administered on 02/12/17 08 :25; Admin Dose 10 UNIT; Start 02/12/17 at 08:00 Diagnostic Test (Pha) (Accu-Chek) 1 ea 02 XX ; Start 02/12/17 at 02:00 Diagnostic Test (Pha) (Accu-Chek) 1 ea 02 XX ; Start 02/12/17 at 02:00 Miscellaneous Information 1 ea NOTE XX ; Start 02/12/17 at 03:00 Glucose (Glutose) 15 gm Q15M PRN PO DECREASED GLUCOSE; Start 02/12/17 at 03:00 Glucose (Glutose) 22.5 gm Q15M PRN PO DECREASED GLUCOSE; Start 02/12/17 at 03: 00 Dextrose (D50w Syringe) 25 ml Q15M PRN IV DECREASED GLUCOSE; Start 02/12/17 at 03:00 Dextrose (D50w Syringe) 50 ml Q15M PRN IV DECREASED GLUCOSE; Start 02/12/17 at 03:00 Glucagon (Glucagen) 1 mg Q15M PRN IM DECREASED GLUCOSE; Start 02/12/17 at 03:00 Glucose 15 gm 15 gm Q15M PRN BUCCAL DECREASED GLUCOSE; Start 02/12/17 at 03:00 Vancomycin HCl (Vancocin) 250 ml @ 125 mls/hr Q24H IVPB ; Start 02/12/17 at 16: 00 TARYN MAYEN Feb 12, 2017 15:11
[2017-02-12 15:33] VITALS: BP 107/58; RESP 16
[2017-02-12] MEDS: SOD CHLORIDE 0.9% 1,000 ML IV SCH ×2 (16:00→17:20)
[2017-02-12] MEDS ORDERED: VANCOMYCIN 1 GM in NS 250 ML IVPB SCH (16:00)
[2017-02-12] MEDS: VANCOMYCIN 750 MG in SOD CHLORIDE 0.9% 150 ML IVPB SCH (17:30)
[2017-02-12 20:50] VITALS: BP 129/60; RESP 16
--- NOTE | 2017-02-12 22:41 | CONS ---
DATE OF ADMISSION: 02/11/2017 DATE OF CONSULTATION: 02/12/2017 Infectious Disease Consultation REASON FOR CONSULTATION: Antibiotic management. Katarina Lester is a 56-year-old female, who comes in with fever and left leg pain for 2 days. Past problems include: 1. Adult-onset diabetes mellitus on insulin. 2. Status post hysterectomy. 3. Left eye surgery 3 years ago at [facility]. 4. Hypertension. 5. Iron deficiency. Acutely, the patient comes in with leg pain for 2 days. Pain is localized to the left leg. She denies any radiation of the pain and denies any trauma associated with this. On admission, her white count is 17,000. H and H of 12.8, 38.3, platelet count 115,000. BUN, creatinine 24/0.72. Glucose of 280. Her urine is negative for leukocyte esterase or nitrites. PAST MEDICAL HISTORY: Operations as outlined. FAMILY HISTORY: Noncontributory. SOCIAL HISTORY: She does not smoke, drink, or abuse drugs. ALLERGIES: NONE TO PENICILLIN, SULFA, OR FOODS. MEDICATION: Per chart. REVIEW OF SYSTEMS: As per HPI. PHYSICAL EXAMINATION: GENERAL: Patient is a well-developed, well-nourished female who is awake, responsive, in no acute distress. VITAL SIGNS: Vital signs is stable. T-max is 100.1. SKIN: She has cellulitis of the left thigh extending to the left mid calf. No jaundice or icterus. HEENT: Within normal limits. NECK: Supple. Lymph nodes nonpalpable. CHEST: Decreased breath sounds at the bases. HEART: Without murmur or gallop. ABDOMEN: Soft, nontender, without organomegaly or splenomegaly or masses. EXTREMITIES: Without cyanosis, clubbing, or edema. RECTAL: Exam is deferred. GENITAL: Exam is deferred. NEUROLOGIC: No focal neurological abnormalities. IMPRESSION AND PLAN: The patient presents now with cellulitis of the left thigh. She is diabetic. White count today is 12.6. She was begun on ceftriaxone and she has received vancomycin. She should be on vancomycin as well. I will dictate my findings to the hospitalist. Dictated By: Bebo Kim MD JD/[email or web address]/evie /Document#: [id number]
[2017-02-13 01:30] VITALS: BP 118/60; RESP 16
[2017-02-13] MEDS: CEFTRIAXONE 1 GM/50 ML (PMX) 50 ML IVPB SCH (01:33)
[2017-02-13] MEDS: ACCU-CHEK XX SCH (01:33)
[2017-02-13] MEDS: VANCOMYCIN 750 MG in SOD CHLORIDE 0.9% 150 ML IVPB SCH (05:13)
[2017-02-13] MEDS: PANTOPRAZOLE (EC) 40 MG TAB PO SCH (05:13)
[2017-02-13 06:42] LABS: ABNORMAL IP MESSAGE 1; HEMATOCRIT 32.4 % (37.0-47.0); HEMOGLOBIN 10.9 g/dl (12.0-16.0); MEAN CORPUSCULAR HEMOGLOBIN 29.5 pg (29.0-33.0); MEAN CORPUSCULAR HGB CONC 33.6 g/dl (32.0-37.0); MEAN CORPUSCULAR VOLUME 87.8 fl (82.0-101.0); MEAN PLATELET VOLUME 13.6 fl (7.4-10.4); PLATELET COUNT 95 10^3/UL (140-415); RED BLOOD COUNT 3.69 10^6/ul (4.20-5.40); RED CELL DISTRIBUTION WIDTH 13.8 % (11.5-14.5); WHITE BLOOD COUNT 10.1 10^3/ul (4.8-10.8)
[2017-02-13] MEDS: SOD CHLORIDE 0.9% 1,000 ML IV SCH ×2 (06:58→17:17)
[2017-02-13 07:02] LABS: CALCIUM 7.7 mg/dl (8.4-10.2); CREATININE 0.69 mg/dl (0.44-1.00)
[2017-02-13 07:09] LABS: POSITIVE DIFF @See below
[2017-02-13] MEDS: INSULIN GLARGINE [LANtus] 3 ML PEN SC SCH (08:01)
[2017-02-13] MEDS: INSULIN ASPART [NOVOLOG] 3 ML PEN SC SCH ×8 (08:01→21:00)
[2017-02-13 08:15] VITALS: BP 138/64; RESP 20
[2017-02-13] MEDS: ASPIRIN (EC) 81 MG TAB PO SCH (08:42)
[2017-02-13] MEDS: ACETAMINOPHEN 325 MG TAB PO PRN (08:42)
[2017-02-13] MEDS: ENOXAPARIN 40 MG/0.4 ML SYG SC SCH (08:50)
[2017-02-13 11:28] LABS: ANISOCYTOSIS 1+ (0-0); BASOPHILS % (M) 1 % (0-2); GIANT THROMBO% (M) 1 % (0-0); MICROCYTOSIS 1+ (0-0); MONOCYTES % (M) 5 % (0-11); PLATELET ESTIMATE DECREASED; POLYCHROMASIA 3+ (0-0)
[2017-02-13 15:10] VITALS: BP 109/63; RESP 20
[2017-02-13] MEDS ORDERED: BARIUM SULF 2% 450 ML BTL (BERRY SMOOTHIE) PO ONE (16:00)
--- NOTE | 2017-02-13 17:04 | PN ---
Date/Time of Note Date/Time of Note DATE: 02/13/17 TIME: 17:03 Assessment/Plan VTE Prophylaxis VTE Prophylaxis Intervention: ambulation Lines/Catheters IV [facility]from [facility] [place] Urinary Cath still in place: No Assessment/Plan Chief Complaint/Hosp Course 1. Left hip cellulitis with SIRS 2. Dm type II controlled 3. Anemia 4. Dehydration Problems: Assessment/Plan 1. CT scan left lower extremity without contrast Subjective 24 Hr Interval Summary Constitutional: no complaints Musculoskeletal: swelling (left leg) Exam/Review of Systems Vital Signs Vitals Vital Signs Date Time Temp Pulse Resp B/P Pulse Ox O2 Delivery O2 Flow Rate FiO2 02/13/17 15:10 97.8 91 20 109/63 96 02/12/17 13:42 Nasal Cannula 02/12/17 06:21 1.0 Intake and Output 02/12/17 02/12/17 02/13/17 15:00 23:00 07:00 Intake Total 2375 ml 680 ml Balance 2375 ml 680 ml Exam Constitutional: alert, oriented Musculoskeletal: swelling (left leg) Results Result Diagram: 02/13/17 0523 02/13/17 0523 Results 24 hrs Laboratory Tests Test 02/12/17 17:18 02/12/17 20:49 02/13/17 00:21 02/13/17 05:23 Bedside Glucose 99 121 Lactic Acid Level 0.9 White Blood Count 10.1 Red Blood Count 3.69 L Hemoglobin 10.9 L Hematocrit 32.4 L Mean Corpuscular Volume 87.8 Mean Corpuscular Hemoglobin 29.5 Mean Corpuscular Hemoglobin Concent 33.6 Red Cell Distribution Width 13.8 Platelet Count 95 L Mean Platelet Volume 13.6 H Neutrophils % Segmented Neutrophils % (Manual) 66 Band Neutrophils % (Manual) 23 H Lymphocytes % Lymphocytes % (Manual) 5 L Monocytes % Monocytes % (Manual) 5 Eosinophils % Basophils % Basophils % (Manual) 1 Nucleated Red Blood Cells % 0.0 Neutrophils # (Manual) 7 Band Neutrophils # 2.3 H Absolute Lymphocytes (Manual) 0.5 L Lymphocytes # Monocytes # Absolute Monocytes (Manual) 0.5 Eosinophils # Basophils # Basophils # (Manual) 0.1 H Nucleated Red Blood Cells # Thrombocytosis 1 H Platelet Estimate DECREASED Polychromasia 3+ Anisocytosis 1+ Microcytosis 1+ Sodium Level 138 Potassium Level 4.0 Chloride Level 101 Carbon Dioxide Level 23 Anion Gap 18 H Blood Urea Nitrogen 12 # Creatinine 0.69 Glucose Level 172 Calcium Level 7.7 L Test 02/13/17 07:54 02/13/17 12:13 Bedside Glucose 147 127 Medications Medications Current Medications Pantoprazole 40 mg 40 mg DAILY@06 PO Last administered on 02/13/17 05:13; Admin Dose 40 MG; Start 02/12/17 at 06:00 Ceftriaxone Sodium (Rocephin) 50 ml @ 100 mls/hr Q24H IVPB Last administered on 02/13/17 01:33; Admin Dose 100 MLS/HR; Start 02/12/17 at 02:00 Enoxaparin Sodium (Lovenox) 40 mg DAILY SC Last administered on 02/13/17 08:50 ; Admin Dose 40 MG; Start 02/12/17 at 09:00 Morphine Sulfate (morphine) 2 mg Q4H PRN IV PAIN; Start 02/12/17 at 02:00 Ondansetron HCl (Zofran Inj) 4 mg Q4H PRN IV NAUSEA AND/OR VOMITING; Start at 02:00 Aspirin (Halfprin) 81 mg DAILY PO Last administered on 02/13/17 08:42; Admin Dose 81 MG; Start 02/12/17 at 09:00 Acetaminophen (Tylenol Tab) 650 mg Q6H PRN PO PAIN AND OR ELEVATED TEMP Last administered on 02/13/17 08:42; Admin Dose 650 MG; Start 02/12/17 at 02:00 Insulin Glargine (Lantus) 10 unit DAILY@08 SC Last administered on 02/13/17 08 :01; Admin Dose 10 UNIT; Start 02/12/17 at 08:00 Diagnostic Test (Pha) (Accu-Chek) 1 ea 02 XX ; Start 02/12/17 at 02:00 Miscellaneous Information 1 ea NOTE XX ; Start 02/12/17 at 03:00 Glucose (Glutose) 15 gm Q15M PRN PO DECREASED GLUCOSE; Start 02/12/17 at 03:00 Glucose (Glutose) 22.5 gm Q15M PRN PO DECREASED GLUCOSE; Start 02/12/17 at 03: 00 Dextrose (D50w Syringe) 25 ml Q15M PRN IV DECREASED GLUCOSE; Start 02/12/17 at 03:00 Dextrose (D50w Syringe) 50 ml Q15M PRN IV DECREASED GLUCOSE; Start 02/12/17 at 03:00 Glucagon (Glucagen) 1 mg Q15M PRN IM DECREASED GLUCOSE; Start 02/12/17 at 03:00 Glucose 15 gm 15 gm Q15M PRN BUCCAL DECREASED GLUCOSE; Start 02/12/17 at 03:00 Sodium Chloride 1,000 ml @ 100 mls/hr Q10H IV Last administered on 02/13/17 06:58; Admin Dose 100 MLS/HR; Start 02/12/17 at 16:00 Vancomycin HCl/ Sodium Chloride (Vancocin/NS) 150 ml @ 75 mls/hr Q12H IVPB Last administered on 02/13/17 05:13; Admin Dose 75 MLS/HR; Start 02/12/17 at 17 :00 TARYN MAYEN Feb 13, 2017 17:04
[2017-02-13] MEDS: VANCOMYCIN 1 GM in NS 250 ML IVPB SCH (19:07)
[2017-02-13 19:29] VITALS: BP 132/68; RESP 18
--- NOTE | 2017-02-13 22:32 | PN ---
DATE: 02/13/2017 SUBJECTIVE DATA: No acute changes. The patient is alert, looks comfortable. OBJECTIVE DATA: VITAL SIGNS: Temperature 101.8, pulse 110, respirations 20, blood pressure 138/64, and saturation 94 percent on room air. MICROBIOLOGY: Blood cultures remain negative. Urinalysis was negative for nitrite and leukocyte esterase. ANTIMICROBIALS: The patient is on IV vancomycin and Rocephin. PHYSICAL EXAMINATION: GENERAL: This is a well-developed, well-nourished, middle-aged woman, who is awake, in no distress. HEENT: Head atraumatic, normocephalic. Sclerae anicteric. Buccal mucosa pink. NECK: Supple. CHEST: Rise symmetrical. Breath sounds clear. HEART: S1, S2. ABDOMEN: Soft, bowel sounds present. EXTREMITIES: Left lower extremity edema and erythema. ASSESSMENT: 1. Systemic inflammatory response syndrome with fevers and leukocytosis secondary number 2. 2. Left lower extremity cellulitis, no evidence of deep venous thrombosis (DVT) as per ultrasound. 3. Hypertension. 4. Diabetes. PLAN: 1. The patient remains clinically stable. 2. Blood cultures had been negative. 3. She is on appropriate antimicrobials. 4. We will keep her left lower extremity elevated. If swelling does not improve, recommend to order a CT of the abdomen and pelvis, as well as left lower extremity to rule out occlusion and abscess. Dictated By: Shauna Mitchell NP /[email or web address]/valentina /Document#: [id number]
[2017-02-14] MEDS: CEFTRIAXONE 1 GM/50 ML (PMX) 50 ML IVPB SCH (01:33)
[2017-02-14 01:44] VITALS: BP 116/63; RESP 18
[2017-02-14] MEDS: ACCU-CHEK XX SCH (02:00)
[2017-02-14] MEDS: PANTOPRAZOLE (EC) 40 MG TAB PO SCH (05:21)
[2017-02-14] MEDS: VANCOMYCIN 1 GM in NS 250 ML IVPB SCH ×2 (05:21→17:28)
[2017-02-14] MEDS: SOD CHLORIDE 0.9% 1,000 ML IV SCH ×4 (05:21→19:54)
[2017-02-14] MEDS: INSULIN ASPART [NOVOLOG] 3 ML PEN SC SCH ×7 (08:00→20:43)
[2017-02-14] MEDS: ENOXAPARIN 40 MG/0.4 ML SYG SC SCH (08:19)
[2017-02-14] MEDS: INSULIN GLARGINE [LANtus] 3 ML PEN SC SCH (08:19)
[2017-02-14] MEDS: ASPIRIN (EC) 81 MG TAB PO SCH (08:25)
--- NOTE | 2017-02-14 13:27 | CONS ---
Date/Time of Note Date/Time of Note DATE: 02/14/17 TIME: 13:25 Assessment/Plan Assessment/Plan Chief Complaint/Hosp Course SUBJECTIVE DATA: No acute changes. The patient is alert, sitting up in a chair , looks comfortable. MICROBIOLOGY: Blood cultures remain negative. Urinalysis was negative for nitrite and leukocyte esterase. ANTIMICROBIALS: IV vancomycin and Rocephin. PHYSICAL EXAMINATION: GENERAL: This is a well-developed, well-nourished, middle-aged woman, who is awake, in no distress. HEENT: Head atraumatic, normocephalic. Sclerae anicteric. Buccal mucosa pink. NECK: Supple. CHEST: Rise symmetrical. Breath sounds clear. HEART: S1, S2. ABDOMEN: Soft, bowel sounds present. EXTREMITIES: Left lower extremity edema with erythema. ASSESSMENT: 1. Systemic inflammatory response syndrome with fevers and leukocytosis secondary number 2. 2. Left lower extremity cellulitis, no evidence of deep venous thrombosis (DVT) as per ultrasound. 3. Hypertension. 4. Diabetes. PLAN: The patient remains stable, continue abx, LLE elevation, pending LE CT RAMIRO RN Problems: Consultation Date/Type/Reason Admit Date/Time Feb 11, 2017 at 22:12 Initial Consult Date 02/12/17 Type of Consultation: id Exam/Review of Systems Vital Signs Vitals Vital Signs Date Time Temp Pulse Resp B/P Pulse Ox O2 Delivery O2 Flow Rate FiO2 02/14/17 01:44 98.4 97 18 116/63 98 02/12/17 13:42 Nasal Cannula 02/12/17 06:21 1.0 Intake and Output 02/13/17 02/13/17 02/14/17 15:00 23:00 07:00 Intake Total 1250 ml 1450 ml Balance 1250 ml 1450 ml Results Result Diagram: 02/13/17 0523 02/13/17 0523 Results 24 hrs Laboratory Tests Test 02/13/17 16:15 02/13/17 17:18 02/13/17 21:00 02/14/17 08:01 Vancomycin Level Trough 7.6 L Bedside Glucose 143 103 181 Test 02/14/17 12:14 Bedside Glucose 135 Medications Medications Current Medications Pantoprazole 40 mg 40 mg DAILY@06 PO Last administered on 02/14/17t 05:21; Admin Dose 40 MG; Start 02/12/17 at 06:00 Ceftriaxone Sodium (Rocephin) 50 ml @ 100 mls/hr Q24H IVPB Last administered on 02/14/17 01:33; Admin Dose 100 MLS/HR; Start 02/12/17 at 02:00 Enoxaparin Sodium (Lovenox) 40 mg DAILY SC Last administered on 02/14/17 08:19 ; Admin Dose 40 MG; Start 02/12/17 at 09:00 Morphine Sulfate (morphine) 2 mg Q4H PRN IV PAIN Last administered on 11:21; Admin Dose 2 MG; Start 02/12/17 at 02:00 Ondansetron HCl (Zofran Inj) 4 mg Q4H PRN IV NAUSEA AND/OR VOMITING; Start at 02:00 Aspirin (Halfprin) 81 mg DAILY PO Last administered on 02/13/17 08:42; Admin Dose 81 MG; Start 02/12/17 at 09:00 Acetaminophen (Tylenol Tab) 650 mg Q6H PRN PO PAIN AND OR ELEVATED TEMP Last administered on 02/13/17 08:42; Admin Dose 650 MG; Start 02/12/17 at 02:00 Insulin Glargine (Lantus) 10 unit DAILY@08 SC Last administered on 02/14/17 08 :19; Admin Dose 10 UNIT; Start 02/12/17 at 08:00 Diagnostic Test (Pha) (Accu-Chek) 1 ea 02 XX ; Start 02/12/17 at 02:00 Miscellaneous Information 1 ea NOTE XX ; Start 02/12/17 at 03:00 Glucose (Glutose) 15 gm Q15M PRN PO DECREASED GLUCOSE; Start 02/12/17 at 03:00 Glucose (Glutose) 22.5 gm Q15M PRN PO DECREASED GLUCOSE; Start 02/12/17 at 03: 00 Dextrose (D50w Syringe) 25 ml Q15M PRN IV DECREASED GLUCOSE; Start 02/12/17 at 03:00 Dextrose (D50w Syringe) 50 ml Q15M PRN IV DECREASED GLUCOSE; Start 02/12/17 at 03:00 Glucagon (Glucagen) 1 mg Q15M PRN IM DECREASED GLUCOSE; Start 02/12/17 at 03:00 Glucose 15 gm 15 gm Q15M PRN BUCCAL DECREASED GLUCOSE; Start 02/12/17 at 03:00 Sodium Chloride 1,000 ml @ 100 mls/hr Q10H IV Last administered on 02/14/17 05:21; Admin Dose 100 MLS/HR; Start 02/12/17 at 16:00 Vancomycin HCl (Vancocin) 250 ml @ 125 mls/hr Q12H IVPB Last administered on 05:21; Admin Dose 125 MLS/HR; Start 02/13/17 at 17:30 Miscellaneous Information (*Rx Drug Level Order Reminder*) VANCOMYCIN TROUGH AT 0430 ONCE ONCE XX ; Start 02/15/17 at 04:30; Stop 02/15/17 at 04:31 JACQUELINE DOMINGUEZ NP Feb 14, 2017 13:27
[2017-02-14] MEDS ORDERED: IOHEXOL 300MG/ML 150 ML BTL ONE (13:32)
[2017-02-14] MEDS ORDERED: SOD CHLORIDE 0.9% 100 ML ONE (13:33)
--- NOTE | 2017-02-14 17:50 | RADRPT ---
PROCEDURE: CT of the left lower extremity with IV contrast CLINICAL INDICATION: Left lower extremity pain and swelling, concern for abscess TECHNIQUE: Axial images through the left lower extremity with IV contrast. Coronal and sagittal reformats. 90 cc of Omnipaque-300 IV contrast was used. Images were interpreted at an independent [facility] workstation. CTDI 64.55 mGy DLP 48.15 mGy-cm One or more of the following dose reduction techniques were used: Automated exposure control Adjustment of the mA and / or kV according to patient size Use of iterative reconstruction technique. COMPARISON: None available FINDINGS: There is diffuse subcutaneous soft tissue swelling throughout the visualized left lower extremity. There is a skin defect along the anteromedial mid thigh with some adjacent ill-defined phlegmonous c hange at this location (axial 126). There is no definite drainable fluid collection. There is no e vidence of soft tissue gas. There is no definite intramuscular fluid collection. There is a small l ipoma within the vastus intermedius muscle. Assessment for myositis is limited on CT compared to MR I. There is no CT evidence of acute fracture. There are minimal degenerative changes of the left hip. There is physiologic knee joint fluid and hip joint fluid. Limited assessment of the vessels demonstrates grossly patent arterial system. There is no signific ant lymphadenopathy. Limited intrapelvic evaluation demonstrates mild presacral edema. There are garcia rgical clips in the region of the left iliac vessels. IMPRESSION: 1. Diffuse subcutaneous soft tissue swelling throughout the left lower extremity, query cellulitis. Note is made of a skin defect with adjacent ill-defined phlegmonous change along the anteromedial mid thigh. No discrete subcutaneous drainable fluid collection is identified. 2. No evidence of soft tissue gas. 3. No CT evidence of acute fracture or osteomyelitis. 4. Nonspecific presacral edema. RPTAT: UU .José Miguel Michael MD, MD Date Time Electronically viewed and signed by .José Miguel Michael MD, on 02/14/2017 17:50 .K/
[2017-02-14 20:00] VITALS: BP 143/67; RESP 18
--- NOTE | 2017-02-14 20:12 | PN ---
Date/Time of Note Date/Time of Note DATE: 02/14/17 TIME: 20:10 Assessment/Plan VTE Prophylaxis VTE Prophylaxis Intervention: LMWH Lines/Catheters IV C[facility] Type [facility] Peripheral IV Urinary Cath still in place: No Assessment/Plan Chief Complaint/Hosp Course 1 Left thigh cellulitis with SIRS, CT +cellulitis, no drainable collection 2. Dm type II controlled 3. Anemia 4. Dehydration Problems: Assessment/Plan 1. Continue antibiotics with Vancomycin 2. LLE elevation, f/u ID RECS 3. Dr Herndon 4. GI and DVT prophylaxsis Problems: Subjective 24 Hr Interval Summary Free Text/Dictation Fever 99.7 last night Exam/Review of Systems Vital Signs Vitals Vital Signs Date Time Temp Pulse Resp B/P Pulse Ox O2 Delivery O2 Flow Rate FiO2 02/14/17 01:44 98.4 97 18 116/63 98 02/12/17 13:42 Nasal Cannula 02/12/17 06:21 1.0 Intake and Output 02/13/17 02/13/17 02/14/17 15:00 23:00 07:00 Intake Total 1250 ml 1450 ml Balance 1250 ml 1450 ml Exam Constitutional: alert, oriented Musculoskeletal: swelling (left leg) with redness Results Result Diagram: 02/13/1752202/13/17522 Results 24 hrs Laboratory Tests Test 02/13/17 21:00 02/14/17 08:01 02/14/17 12:14 02/14/17 17:23 Bedside Glucose 103 181 135 186 Medications Medications Current Medications Pantoprazole 40 mg 40 mg DAILY@06 PO Last administered on 02/14/17 05:21; Admin Dose 40 MG; Start 02/12/17 at 06:00 Ceftriaxone Sodium (Rocephin) 50 ml @ 100 mls/hr Q24H IVPB Last administered on 02/14/17 01:33; Admin Dose 100 MLS/HR; Start 02/12/17 at 02:00 Enoxaparin Sodium (Lovenox) 40 mg DAILY SC Last administered on 02/14/17 08:19 ; Admin Dose 40 MG; Start 02/12/17 at 09:00 Morphine Sulfate (morphine) 2 mg Q4H PRN IV PAIN Last administered on 11:21; Admin Dose 2 MG; Start 02/12/17 at 02:00 Ondansetron HCl (Zofran Inj) 4 mg Q4H PRN IV NAUSEA AND/OR VOMITING; Start at 02:00 Aspirin (Halfprin) 81 mg DAILY PO Last administered on 02/13/17 08:42; Admin Dose 81 MG; Start 02/12/17 at 09:00 Acetaminophen (Tylenol Tab) 650 mg Q6H PRN PO PAIN AND OR ELEVATED TEMP Last administered on 02/13/17 08:42; Admin Dose 650 MG; Start 02/12/17 at 02:00 Insulin Glargine (Lantus) 10 unit DAILY@08 SC Last administered on 02/14/17 08 :19; Admin Dose 10 UNIT; Start 02/12/17 at 08:00 Diagnostic Test (Pha) (Accu-Chek) 1 ea 02 XX ; Start 02/12/17 at 02:00 Miscellaneous Information 1 ea NOTE XX ; Start 02/12/17 at 03:00 Glucose (Glutose) 15 gm Q15M PRN PO DECREASED GLUCOSE; Start 02/12/17 at 03:00 Glucose (Glutose) 22.5 gm Q15M PRN PO DECREASED GLUCOSE; Start 02/12/17 at 03: 00 Dextrose (D50w Syringe) 25 ml Q15M PRN IV DECREASED GLUCOSE; Start 02/12/17 at 03:00 Dextrose (D50w Syringe) 50 ml Q15M PRN IV DECREASED GLUCOSE; Start 02/12/17 at 03:00 Glucagon (Glucagen) 1 mg Q15M PRN IM DECREASED GLUCOSE; Start 02/12/17 at 03:00 Glucose 15 gm 15 gm Q15M PRN BUCCAL DECREASED GLUCOSE; Start 02/12/17 at 03:00 Sodium Chloride 1,000 ml @ 100 mls/hr Q10H IV Last administered on 02/14/17 19:54; Admin Dose 100 MLS/HR; Start 02/12/17 at 16:00 Vancomycin HCl (Vancocin) 250 ml @ 125 mls/hr Q12H IVPB Last administered on 17:28; Admin Dose 125 MLS/HR; Start 02/13/17 at 17:30 Miscellaneous Information (*Rx Drug Level Order Reminder*) VANCOMYCIN TROUGH AT 0430 ONCE ONCE XX ; Start 02/15/17 at 04:30; Stop 02/15/17 at 04:31 FRANCE CARLSON MD Feb 14, 2017 20:12
--- NOTE | 2017-02-14 21:27 | RADRPT ---
PROCEDURE: CT ABDOMEN AND PELVIS WITHOUT CONTRAST: CLINICAL INDICATION: 56 years of age, female , rule out occlusive disease. COMPARISON: May 15, 2016 TECHNIQUE: CT of the abdomen and pelvis was performed without intravenous contrast. Oral contrast wa s administered prior to the examination. Coronal and sagittal reformatted images were obtained from the axial source images. Images were revi ewed on a high-resolution PACS workstation. Dose information: Based on a 32 cm phantom, the estimated radiation dose (CTDI vol mGy) for each ser ies in this exam is 5.3. The estimated cumulative dose (DLP mGy-cm) is 286. FINDINGS: In the absence of intravenous contrast, the study constitutes a limited assessment of the solid orga ns, bowel and vessels. LUNG BASES: Small bilateral pleural effusions are new from prior exam. Bilateral dependent atelecta sis. ABDOMEN/PELVIS: Liver: Hepatic steatosis and hepatomegaly measuring 20 cm are new from prior exam. Gallbladder: Calcified gallstones. Gallbladder is contracted. Negative for evidence of acute lonnie cystitis. Bile ducts: No intrahepatic or extrahepatic biliary duct dilatation. Spleen: Normal noncontrast appearance. Pancreas: Normal noncontrast appearance. Adrenal glands: Normal noncontrast appearance. Kidneys and ureters: Nonspecific bilateral perinephric fat stranding. Kidneys appear normal without hydronephrosis. Negative for urinary calculi. Aorta and IVC: Atherosclerosis aorta. No aneurysm. Lymph nodes: There are surgical clips in the pelvic sidewalls presumably from lymph node dissection. Nonspecific right greater than left inguinal lymph nodes are presumed reactive. Gastrointestinal tract: There is circumferential wall thickening of the rectum with edema in the per irectal and presacral fat that is new or increased from prior exam. Bowel loops are decompressed. Appendix: Normal Bladder: Normal noncontrast appearance. Pelvic Organs: The uterus is atrophic. Ovaries are not visualized. Peritoneal cavity: No free fluid or free intraperitoneal air. Abdominal wall: There is body wall edema over the inferior abdomen and there is extensive edema and enlargement of the left thigh. Subcutaneous gas left lower quadrant abdominal wall as likely from s ubcutaneous injections. BONES: Musculoskeletal: No suspicious bone lesions. IMPRESSION: Hepatic steatosis and hepatomegaly are new from prior exam. Recommend correlation with liver tests t o evaluate for potential steatohepatitis. Wall thickening of the rectum with edema in the surrounding fat is concerning for proctitis that may be infectious or due to inflammatory bowel disease. This is increased or new from prior exam. Inf lammatory neoplasm could appear similar. Recommend clinical correlation and correlation with colono scopy if not previously performed. Extensive soft tissue edema in the left thigh and inferior body wall. Without intravenous contrast, the study does not evaluate the patency of the veins. If there is clinical concern for DVT, recomm end a venous Doppler. Cholelithiasis without evidence of acute cholecystitis or biliary obstruction. Small bilateral pleural effusions. RPTAT: HCTS Physician Tj Date Time Electronically viewed and signed by Physician Tj on 02/14/2017 21:26 CS/
[2017-02-15] MEDS: CEFTRIAXONE 1 GM/50 ML (PMX) 50 ML IVPB SCH (01:55)
[2017-02-15] MEDS: ACCU-CHEK XX SCH (02:00)
[2017-02-15 02:26] VITALS: BP 117/63; RESP 18
[2017-02-15] MEDS: SOD CHLORIDE 0.9% 1,000 ML IV SCH ×4 (04:00→19:29)
--- NOTE | 2017-02-15 05:00 | CONS ---
DATE OF ADMISSION: 02/11/2017 DATE OF CONSULTATION: 02/14/2017 HISTORY OF PRESENT ILLNESS: The patient is a 56-year-old female with known history of diabetes, on insulin, who was admitted on the January when she came to the emergency room complaining of painful swelling and redness involving her left lower extremity of several days duration. She was also having a fever and chills. She had a chronic edema and swelling involving the left lower extremity, especially below the level of knee, for about 2 years, ever since she had an I and D of an abscess over the inner aspect of the proximal left thigh. At that time, the I and D was carried out initially in the emergency room of the [facility]. However, she had to be hospitalized for 2 weeks. Ever since this surgery, she has been experiencing diffuse swelling in the left lower extremity, especially over the level below the knee. My examination on the January revealed a diffuse edema involving the entire left lower extremity below the level of the inguinal area. In addition to the edema, there was some redness over the lateral aspect of the proximal left thigh, along with the residual redness over the left leg. There was no specific localized tenderness and there was no evidence of any localized fluid collection. The dorsalis pedis and tibialis posterior were palpable. Range of motion of the left knee was minimally limited because of the edema. At the time of her admission on the January, she was febrile with a temperature of 100.1 and she was also showing leukocytosis with a WBC count of 17,000. At the time of my evaluation, she was afebrile and her WBC count was down to 10,000. The radiologic findings were essentially within normal limits except for the soft tissue swelling. DIAGNOSTIC IMPRESSIONS: 1. Cellulitis involving the left lower extremity. 2. Chronic edema, probably from venous compromise following the I and D of the left thigh. RECOMMENDATIONS FOR MANAGEMENT: 1. IV antibiotics as recommended by Infectious Disease. 2. Elevation of the left lower extremity. 3. Possible venous studies to document compromise on venous system. Dictated By: Maurice Herndon MD /[email or web address]/tray /Document#: [id number]
[2017-02-15 05:35] LABS: ABNORMAL IP MESSAGE 1; HEMATOCRIT 28.3 % (37.0-47.0); HEMOGLOBIN 9.4 g/dl (12.0-16.0); MEAN CORPUSCULAR HEMOGLOBIN 28.8 pg (29.0-33.0); MEAN CORPUSCULAR HGB CONC 33.2 g/dl (32.0-37.0); MEAN CORPUSCULAR VOLUME 86.8 fl (82.0-101.0); MEAN PLATELET VOLUME 13.3 fl (7.4-10.4); PLATELET COUNT 95 10^3/UL (140-415); RED BLOOD COUNT 3.26 10^6/ul (4.20-5.40); RED CELL DISTRIBUTION WIDTH 13.7 % (11.5-14.5); WHITE BLOOD COUNT 5.9 10^3/ul (4.8-10.8)
[2017-02-15 06:05] LABS: POSITIVE DIFF @See below
[2017-02-15 06:22] LABS: CALCIUM 7.9 mg/dl (8.4-10.2); CREATININE 0.59 mg/dl (0.44-1.00); POTASSIUM 3.3 mmol/L (3.5-5.1)
[2017-02-15] MEDS: PANTOPRAZOLE (EC) 40 MG TAB PO SCH (06:39)
[2017-02-15] MEDS: VANCOMYCIN 1 GM in NS 250 ML IVPB SCH ×2 (06:39→17:33)
[2017-02-15 07:32] VITALS: BP 125/63; RESP 20
[2017-02-15] MEDS: INSULIN ASPART [NOVOLOG] 3 ML PEN SC SCH ×7 (08:07→20:51)
[2017-02-15] MEDS: INSULIN GLARGINE [LANtus] 3 ML PEN SC SCH (08:08)
[2017-02-15] MEDS: ASPIRIN (EC) 81 MG TAB PO SCH (08:39)
[2017-02-15] MEDS: ENOXAPARIN 40 MG/0.4 ML SYG SC SCH (08:45)
[2017-02-15 09:36] LABS: ANISOCYTOSIS 2+ (0-0); BASOPHILS % (M) 1 % (0-2); METAMYELOCYTES %M 1 % (0-0); MICROCYTOSIS 2+ (0-0); MONOCYTES % (M) 5 % (0-11); PLATELET ESTIMATE DECREASED; POLYCHROMASIA 3+ (0-0); REACTIVE LYMPHOCYTES% (M) 1 % (0-0)
[2017-02-15] MEDS ORDERED: POTASSIUM CHLORIDE (SR) 20 MEQ TAB PO STA (12:40)
--- NOTE | 2017-02-15 12:47 | PN ---
Date/Time of Note Date/Time of Note DATE: 02/15/17 TIME: 12:44 Assessment/Plan VTE Prophylaxis VTE Prophylaxis Intervention: SCD's Lines/Catheters IV Catheter Type (from Nrs): Saline Lock Urinary Cath still in place: No Assessment/Plan Chief Complaint/Hosp Course Physical exam Constitutional: alert, oriented Musculoskeletal: swelling (left leg) with redness 56 y/o with 1 Left thigh cellulitis with SIRS, CT +cellulitis, no drainable collection 2. Dm type II controlled 3. Anemia 4. Dehydration Assessment/Plan 1. Continue antibiotics with Vancomycin 2. LLE elevation, f/u ID RECS 3. Per Dr Herndon recs c/w with abx, no surgical intervention 4. GI and DVT prophylaxsis( hold lovenox due to thrombocytopenia) 5 Insulin for BG Problems: Subjective 24 Hr Interval Summary Free Text/Dictation Left thigh and atkins redness and swelling still persistent Exam/Review of Systems Vital Signs Vitals Vital Signs Date Time Temp Pulse Resp B/P Pulse Ox O2 Delivery O2 Flow Rate FiO2 02/15/17 07:32 99.2 93 20 125/63 98 02/12/17 13:42 Nasal Cannula 02/12/17 06:21 1.0 Intake and Output 02/14/17 02/14/17 02/15/17 15:00 23:00 07:00 Intake Total 250 ml 1250 ml 1350 ml Balance 250 ml 1250 ml 1350 ml Results Result Diagram: 02/15/17 0433 02/15/17 0433 Results 24 hrs Laboratory Tests Test 02/14/17 17:23 02/14/17 20:42 02/15/17 04:33 02/15/17 08:01 Bedside Glucose 186 112 187 White Blood Count 5.9 # Red Blood Count 3.26 L Hemoglobin 9.4 L Hematocrit 28.3 L Mean Corpuscular Volume 86.8 Mean Corpuscular Hemoglobin 28.8 L Mean Corpuscular Hemoglobin Concent 33.2 Red Cell Distribution Width 13.7 Platelet Count 95 L Mean Platelet Volume 13.3 H Neutrophils % Segmented Neutrophils % (Manual) 71 Band Neutrophils % (Manual) 2 Lymphocytes % Lymphocytes % (Manual) 19 Reactive Lymphocytes % (Manual) 1 H Monocytes % Monocytes % (Manual) 5 Eosinophils % Basophils % Basophils % (Manual) 1 Metamyelocytes % (manual) 1 H Nucleated Red Blood Cells % 0.0 Neutrophils # (Manual) 4 Band Neutrophils # 0.1 Absolute Lymphocytes (Manual) 1.1 Lymphocytes # Reactive Lymphocytes # 0.0 Monocytes # Absolute Monocytes (Manual) 0.2 L Eosinophils # Basophils # Basophils # (Manual) 0.0 Metamyelocytes # 0.0 Nucleated Red Blood Cells # Platelet Estimate DECREASED Platelet Morphology Comment @See below Polychromasia 3+ Anisocytosis 2+ Microcytosis 2+ Sodium Level 140 Potassium Level 3.3 L Chloride Level 103 Carbon Dioxide Level 26 Anion Gap 14 Blood Urea Nitrogen 5 L Creatinine 0.59 Glucose Level 154 Calcium Level 7.9 L Vancomycin Level Trough 10.8 Test 02/15/17 12:18 Bedside Glucose 98 Medications Medications Current Medications Pantoprazole 40 mg 40 mg DAILY@06 PO Last administered on 02/15/17 06:39; Admin Dose 40 MG; Start 02/12/17 at 06:00 Ceftriaxone Sodium (Rocephin) 50 ml @ 100 mls/hr Q24H IVPB Last administered on 02/15/17 01:55; Admin Dose 100 MLS/HR; Start 02/12/17 at 02:00 Enoxaparin Sodium (Lovenox) 40 mg DAILY SC Last administered on 02/14/17 08:19 ; Admin Dose 40 MG; Start 02/12/17 at 09:00 Morphine Sulfate (morphine) 2 mg Q4H PRN IV PAIN Last administered on 11:21; Admin Dose 2 MG; Start 02/12/17 at 02:00 Ondansetron HCl (Zofran Inj) 4 mg Q4H PRN IV NAUSEA AND/OR VOMITING; Start at 02:00 Aspirin (Halfprin) 81 mg DAILY PO Last administered on 02/15/17 08:39; Admin Dose 81 MG; Start 02/12/17 at 09:00 Acetaminophen (Tylenol Tab) 650 mg Q6H PRN PO PAIN AND OR ELEVATED TEMP Last administered on 02/13/17 08:42; Admin Dose 650 MG; Start 02/12/17 at 02:00 Insulin Glargine (Lantus) 10 unit DAILY@08 SC Last administered on 02/15/17 08 :08; Admin Dose 10 UNIT; Start 02/12/17 at 08:00 Diagnostic Test (Pha) (Accu-Chek) 1 ea 02 XX ; Start 02/12/17 at 02:00 Miscellaneous Information 1 ea NOTE XX ; Start 02/12/17 at 03:00 Glucose (Glutose) 15 gm Q15M PRN PO DECREASED GLUCOSE; Start 02/12/17 at 03:00 Glucose (Glutose) 22.5 gm Q15M PRN PO DECREASED GLUCOSE; Start 02/12/17 at 03: 00 Dextrose (D50w Syringe) 25 ml Q15M PRN IV DECREASED GLUCOSE; Start 02/12/17 at 03:00 Dextrose (D50w Syringe) 50 ml Q15M PRN IV DECREASED GLUCOSE; Start 02/12/17 at 03:00 Glucagon (Glucagen) 1 mg Q15M PRN IM DECREASED GLUCOSE; Start 02/12/17 at 03:00 Glucose 15 gm 15 gm Q15M PRN BUCCAL DECREASED GLUCOSE; Start 02/12/17 at 03:00 Sodium Chloride 1,000 ml @ 100 mls/hr Q10H IV Last administered on 02/15/17 05:48; Admin Dose 100 MLS/HR; Start 02/12/17 at 16:00 Vancomycin HCl (Vancocin) 250 ml @ 125 mls/hr Q12H IVPB Last administered on 06:39; Admin Dose 125 MLS/HR; Start 02/13/17 at 17:30 FRANCE CARLSON MD Feb 15, 2017 12:46
[2017-02-15 13:20] VITALS: BP 142/66; RESP 20
--- NOTE | 2017-02-15 14:22 | CONS ---
Date/Time of Note Date/Time of Note DATE: 02/15/17 TIME: 14:21 Assessment/Plan Assessment/Plan Chief Complaint/Hosp Course SUBJECTIVE DATA: No acute changes. The patient is alert, sitting up in a chair , looks comfortable. MICROBIOLOGY: Blood cultures remain negative. Urinalysis was negative for nitrite and leukocyte esterase. ANTIMICROBIALS: IV vancomycin and Rocephin. PHYSICAL EXAMINATION: GENERAL: This is a well-developed, well-nourished, middle-aged woman, who is awake, in no distress. HEENT: Head atraumatic, normocephalic. Sclerae anicteric. Buccal mucosa pink. NECK: Supple. CHEST: Rise symmetrical. Breath sounds clear. HEART: S1, S2. ABDOMEN: Soft, bowel sounds present. EXTREMITIES: Left lower extremity edema with erythema. ASSESSMENT: 1. Systemic inflammatory response syndrome with fevers and leukocytosis secondary number 2. 2. Left lower extremity cellulitis ?chronic lymphedema==> no evidence of deep venous thrombosis (DVT) as per ultrasound. 3. Hypertension. 4. Diabetes. PLAN: The patient remains stable, ortho rec-s noted, continue abx, LLE elevation DW RN Problems: Consultation Date/Type/Reason Admit Date/Time Feb 11, 2017 at 22:12 Initial Consult Date 02/12/17 Type of Consultation: id Exam/Review of Systems Vital Signs Vitals Vital Signs Date Time Temp Pulse Resp B/P Pulse Ox O2 Delivery O2 Flow Rate FiO2 02/15/17 13:20 98.4 93 20 142/66 98 02/12/17 13:42 Nasal Cannula 02/12/17 06:21 1.0 Intake and Output 02/14/17 02/14/17 02/15/17 15:00 23:00 07:00 Intake Total 250 ml 1250 ml 1350 ml Balance 250 ml 1250 ml 1350 ml Results Result Diagram: 02/15/17 0433 02/15/17 0433 Results 24 hrs Laboratory Tests Test 02/14/17 17:23 02/14/17 20:42 02/15/17 04:33 02/15/17 08:01 Bedside Glucose 186 112 187 White Blood Count 5.9 # Red Blood Count 3.26 L Hemoglobin 9.4 L Hematocrit 28.3 L Mean Corpuscular Volume 86.8 Mean Corpuscular Hemoglobin 28.8 L Mean Corpuscular Hemoglobin Concent 33.2 Red Cell Distribution Width 13.7 Platelet Count 95 L Mean Platelet Volume 13.3 H Neutrophils % Segmented Neutrophils % (Manual) 71 Band Neutrophils % (Manual) 2 Lymphocytes % Lymphocytes % (Manual) 19 Reactive Lymphocytes % (Manual) 1 H Monocytes % Monocytes % (Manual) 5 Eosinophils % Basophils % Basophils % (Manual) 1 Metamyelocytes % (manual) 1 H Nucleated Red Blood Cells % 0.0 Neutrophils # (Manual) 4 Band Neutrophils # 0.1 Absolute Lymphocytes (Manual) 1.1 Lymphocytes # Reactive Lymphocytes # 0.0 Monocytes # Absolute Monocytes (Manual) 0.2 L Eosinophils # Basophils # Basophils # (Manual) 0.0 Metamyelocytes # 0.0 Nucleated Red Blood Cells # Platelet Estimate DECREASED Platelet Morphology Comment @See below Polychromasia 3+ Anisocytosis 2+ Microcytosis 2+ Sodium Level 140 Potassium Level 3.3 L Chloride Level 103 Carbon Dioxide Level 26 Anion Gap 14 Blood Urea Nitrogen 5 L Creatinine 0.59 Glucose Level 154 Calcium Level 7.9 L Vancomycin Level Trough 10.8 Test 02/15/17 12:18 Bedside Glucose 98 Medications Medications Current Medications Pantoprazole 40 mg 40 mg DAILY@06 PO Last administered on 02/15/17 06:39; Admin Dose 40 MG; Start 02/12/17 at 06:00 Ceftriaxone Sodium (Rocephin) 50 ml @ 100 mls/hr Q24H IVPB Last administered on 02/15/17 01:55; Admin Dose 100 MLS/HR; Start 02/12/17 at 02:00 Enoxaparin Sodium (Lovenox) 40 mg DAILY SC Last administered on 02/14/17 08:19 ; Admin Dose 40 MG; Start 02/12/17 at 09:00; Status Future Hold Morphine Sulfate (morphine) 2 mg Q4H PRN IV PAIN Last administered on 11:21; Admin Dose 2 MG; Start 02/12/17 at 02:00 Ondansetron HCl (Zofran Inj) 4 mg Q4H PRN IV NAUSEA AND/OR VOMITING; Start at 02:00 Aspirin (Halfprin) 81 mg DAILY PO Last administered on 02/15/17 08:39; Admin Dose 81 MG; Start 02/12/17 at 09:00 Acetaminophen (Tylenol Tab) 650 mg Q6H PRN PO PAIN AND OR ELEVATED TEMP Last administered on 02/13/17 08:42; Admin Dose 650 MG; Start 02/12/17 at 02:00 Insulin Glargine (Lantus) 10 unit DAILY@08 SC Last administered on 02/15/17 08 :08; Admin Dose 10 UNIT; Start 02/12/17 at 08:00 Diagnostic Test (Pha) (Accu-Chek) 1 ea 02 XX ; Start 02/12/17 at 02:00 Miscellaneous Information 1 ea NOTE XX ; Start 02/12/17 at 03:00 Glucose (Glutose) 15 gm Q15M PRN PO DECREASED GLUCOSE; Start 02/12/17 at 03:00 Glucose (Glutose) 22.5 gm Q15M PRN PO DECREASED GLUCOSE; Start 02/12/17 at 03: 00 Dextrose (D50w Syringe) 25 ml Q15M PRN IV DECREASED GLUCOSE; Start 02/12/17 at 03:00 Dextrose (D50w Syringe) 50 ml Q15M PRN IV DECREASED GLUCOSE; Start 02/12/17 at 03:00 Glucagon (Glucagen) 1 mg Q15M PRN IM DECREASED GLUCOSE; Start 02/12/17 at 03:00 Glucose 15 gm 15 gm Q15M PRN BUCCAL DECREASED GLUCOSE; Start 02/12/17 at 03:00 Sodium Chloride 1,000 ml @ 100 mls/hr Q10H IV Last administered on 02/15/17 05:48; Admin Dose 100 MLS/HR; Start 02/12/17 at 16:00 Vancomycin HCl (Vancocin) 250 ml @ 125 mls/hr Q12H IVPB Last administered on 06:39; Admin Dose 125 MLS/HR; Start 02/13/17 at 17:30 JACQUELINE DOMINGUEZ NP Feb 15, 2017 14:22
[2017-02-15 19:41] VITALS: BP 145/70; RESP 18
[2017-02-16] MEDS: CEFTRIAXONE 1 GM/50 ML (PMX) 50 ML IVPB SCH (01:54)
[2017-02-16] MEDS: SOD CHLORIDE 0.9% 1,000 ML IV SCH ×2 (01:57→05:47)
[2017-02-16 02:00] VITALS: BP 117/58; RESP 18
[2017-02-16] MEDS: ACCU-CHEK XX SCH (02:00)
[2017-02-16] MEDS: VANCOMYCIN 1 GM in NS 250 ML IVPB SCH ×2 (05:42→18:10)
[2017-02-16] MEDS: PANTOPRAZOLE (EC) 40 MG TAB PO SCH (05:42)
[2017-02-16 05:45] LABS: ABNORMAL IP MESSAGE 1; HEMATOCRIT 30.3 % (37.0-47.0); MEAN CORPUSCULAR HEMOGLOBIN 28.3 pg (29.0-33.0); MEAN CORPUSCULAR VOLUME 85.8 fl (82.0-101.0); MEAN PLATELET VOLUME 11.9 fl (7.4-10.4); NUCLEATED RED BLOOD CELLS% 0.4 /100WBC (0.0-0.0); PLATELET COUNT 182 10^3/UL (140-415); RED BLOOD COUNT 3.53 10^6/ul (4.20-5.40); RED CELL DISTRIBUTION WIDTH 13.8 % (11.5-14.5); WHITE BLOOD COUNT 5.6 10^3/ul (4.8-10.8)
[2017-02-16 06:03] LABS: CALCIUM 7.9 mg/dl (8.4-10.2); CREATININE 0.62 mg/dl (0.44-1.00); POTASSIUM 3.2 mmol/L (3.5-5.1)
[2017-02-16 06:26] LABS: POSITIVE DIFF @See below
[2017-02-16 07:57] LABS: ANISOCYTOSIS 1+ (0-0); EOSINOPHILS % (M) 4 % (0-7); GIANT THROMBO% (M) 2 % (0-0); METAMYELOCYTES %M 1 % (0-0); MICROCYTOSIS 1+ (0-0); MONOCYTES % (M) 4 % (0-11); MYELOCYTES % (M) 1 % (0.0-0.0); PLATELET ESTIMATE NORMAL
[2017-02-16] MEDS: INSULIN ASPART [NOVOLOG] 3 ML PEN SC SCH ×7 (08:08→20:29)
[2017-02-16] MEDS: INSULIN GLARGINE [LANtus] 3 ML PEN SC SCH (08:08)
[2017-02-16] MEDS ORDERED: POTASSIUM CHLORIDE (SR) 20 MEQ TAB PO STA (08:15)
[2017-02-16 08:20] VITALS: BP 140/66; RESP 18
[2017-02-16] MEDS: ASPIRIN (EC) 81 MG TAB PO SCH (08:47)
--- NOTE | 2017-02-16 11:12 | PN ---
Date/Time of Note Date/Time of Note DATE: 02/16/17 TIME: 11:10 Assessment/Plan VTE Prophylaxis VTE Prophylaxis Intervention: SCD's Lines/Catheters IV Catheter Type (from Nrs): Peripheral IV Urinary Cath still in place: No Assessment/Plan Chief Complaint/Hosp Course Physical exam Constitutional: alert, oriented Musculoskeletal: diffuse swelling (left thigh leg) with redness leg+ 56 y/o with 1 Left thigh cellulitis with SIRS, CT +cellulitis, no drainable collection, however CT A+P ? Proctitis vs Inflammatory disease vs Inflammatory neoplasm 2. Dm type II controlled 3. Anemia 4. Dehydration Assessment/Plan 1. Continue antibiotics with Vancomycin 2 Consulted GI for rectal thickening and lymphedema 2. LLE elevation, f/u ID RECS 3. Per Dr Katrina hernandez c/w with abx, no surgical intervention 4. GI and DVT prophylaxsis( hold lovenox due to thrombocytopenia) 5 Insulin for BG Problems: Subjective 24 Hr Interval Summary Free Text/Dictation Pt feels the same; left thigh swelling still persistent No fevers Exam/Review of Systems Vital Signs Vitals Vital Signs Date Time Temp Pulse Resp B/P Pulse Ox O2 Delivery O2 Flow Rate FiO2 02/16/17 08:20 97.9 83 18 140/66 93 02/12/17 13:42 Nasal Cannula Intake and Output 02/15/17 02/15/17 02/16/17 15:00 23:00 07:00 Intake Total 250 ml 2430 ml 1400 ml Balance 250 ml 2430 ml 1400 ml Results Result Diagram: 02/16/17 0516 02/16/17 0516 Results 24 hrs Laboratory Tests Test 02/15/17 12:18 02/15/17 17:19 02/15/17 20:50 02/16/17 05:16 Bedside Glucose 98 112 137 White Blood Count 5.6 Red Blood Count 3.53 L Hemoglobin 10.0 L Hematocrit 30.3 L Mean Corpuscular Volume 85.8 Mean Corpuscular Hemoglobin 28.3 L Mean Corpuscular Hemoglobin Concent 33.0 Red Cell Distribution Width 13.8 Platelet Count 182 # Mean Platelet Volume 11.9 H Neutrophils % Segmented Neutrophils % (Manual) 53 Lymphocytes % Lymphocytes % (Manual) 37 Monocytes % Monocytes % (Manual) 4 Eosinophils % Eosinophils % (Manual) 4 Basophils % Metamyelocytes % (manual) 1 H Myelocytes % (Manual) 1 H Nucleated Red Blood Cells % 0.4 H Neutrophils # (Manual) Absolute Lymphocytes (Manual) 2.0 Lymphocytes # Monocytes # Absolute Monocytes (Manual) 0.2 L Eosinophils # Basophils # Metamyelocytes # 0.0 Myelocytes # 0.0 Nucleated Red Blood Cells # Thrombocytosis 2 H Platelet Estimate NORMAL Anisocytosis 1+ Microcytosis 1+ Sodium Level 138 Potassium Level 3.2 L Chloride Level 105 Carbon Dioxide Level 24 Anion Gap 12 Blood Urea Nitrogen 6 L Creatinine 0.62 Glucose Level 153 Calcium Level 7.9 L Test 02/16/17 08:00 Bedside Glucose 151 Medications Medications Current Medications Pantoprazole 40 mg 40 mg DAILY@06 PO Last administered on 02/16/17 05:42; Admin Dose 40 MG; Start 02/12/17 at 06:00 Ceftriaxone Sodium (Rocephin) 50 ml @ 100 mls/hr Q24H IVPB Last administered on 02/16/17 01:54; Admin Dose 100 MLS/HR; Start 02/12/17 at 02:00 Enoxaparin Sodium (Lovenox) 40 mg DAILY SC Last administered on 02/14/17 08:19 ; Admin Dose 40 MG; Start 02/12/17 at 09:00; Status Future Hold Morphine Sulfate (morphine) 2 mg Q4H PRN IV PAIN Last administered on 11:21; Admin Dose 2 MG; Start 02/12/17 at 02:00 Ondansetron HCl (Zofran Inj) 4 mg Q4H PRN IV NAUSEA AND/OR VOMITING; Start at 02:00 Aspirin (Halfprin) 81 mg DAILY PO Last administered on 02/16/17 08:47; Admin Dose 81 MG; Start 02/12/17 at 09:00 Acetaminophen (Tylenol Tab) 650 mg Q6H PRN PO PAIN AND OR ELEVATED TEMP Last administered on 02/13/17 08:42; Admin Dose 650 MG; Start 02/12/17 at 02:00 Insulin Glargine (Lantus) 10 unit DAILY@08 SC Last administered on 02/16/17 08 :08; Admin Dose 10 UNIT; Start 02/12/17 at 08:00 Diagnostic Test (Pha) (Accu-Chek) 1 ea 02 XX ; Start 02/12/17 at 02:00 Miscellaneous Information 1 ea NOTE XX ; Start 02/12/17 at 03:00 Glucose (Glutose) 15 gm Q15M PRN PO DECREASED GLUCOSE; Start 02/12/17 at 03:00 Glucose (Glutose) 22.5 gm Q15M PRN PO DECREASED GLUCOSE; Start 02/12/17 at 03: 00 Dextrose (D50w Syringe) 25 ml Q15M PRN IV DECREASED GLUCOSE; Start 02/12/17 at 03:00 Dextrose (D50w Syringe) 50 ml Q15M PRN IV DECREASED GLUCOSE; Start 02/12/17 at 03:00 Glucagon (Glucagen) 1 mg Q15M PRN IM DECREASED GLUCOSE; Start 02/12/17 at 03:00 Glucose 15 gm 15 gm Q15M PRN BUCCAL DECREASED GLUCOSE; Start 02/12/17 at 03:00 Vancomycin HCl (Vancocin) 250 ml @ 125 mls/hr Q12H IVPB Last administered on t 05:42; Admin Dose 125 MLS/HR; Start 02/13/17 at 17:30 FRANCE CARLSON MD Feb 16, 2017 11:12
[2017-02-16 14:00] VITALS: BP 145/69; RESP 18
[2017-02-16 19:28] VITALS: BP 158/76; RESP 20
--- NOTE | 2017-02-16 19:36 | PN ---
DATE: 02/16/2017 SUBJECTIVE DATA: No acute events overnight. The patient is alert, sitting up in a chair, looks comfortable. Denies pain. No fevers. LABORATORY AND DIAGNOSTIC DATA: WBC 5.6, platelet count 182. BUN 6, creatinine 0.62. Blood culture remains negative. Antimicrobials, the patient is on IV vancomycin and Rocephin. OBJECTIVE DATA: GENERAL: Well-developed, middle-aged woman, who is in no distress. HEENT: Head atraumatic, normocephalic. Sclerae anicteric. Buccal mucosa pink. NECK: Supple. CHEST: Rise symmetrical. Breath sounds clear. HEART: S1 and S2. ABDOMEN: Soft, bowel sounds present. EXTREMITIES: Left lower extremity edema and erythema below her knee. ASSESSMENT: 1. Left lower extremity chronic lymphedema with acute cellulitis. 2. History of uterine cancer status post radiation. 3. Questionable proctitis, questionable malignancy as per CT of the abdomen. 4. Hepatic steatosis and hepatomegaly, again as per CT of the abdomen. 5. Resolved leukocytosis. 6. Diabetes. 7. Hypertension. PLAN: The patient remains stable on appropriate antimicrobials. She is going to be evaluated by Gastroenterology for possible colonoscopy. We will continue her on current regimen. We will continue left lower extremity elevation. Await for clinical improvement. Follow orthopedic recommendations. Dictated By: Shauna Mitchell NP /[email or web address]/daryl /Document#: [id number]
[2017-02-17] MEDS: ACCU-CHEK XX SCH (01:48)
[2017-02-17] MEDS: CEFTRIAXONE 1 GM/50 ML (PMX) 50 ML IVPB SCH (01:52)
[2017-02-17 02:56] VITALS: BP 123/62; RESP 20
--- NOTE | 2017-02-17 03:38 | PN ---
DATE: 02/16/2017 SUBJECTIVE DATA: Symptomatic improvement with the IV antibiotics and elevation of the left leg. OBJECTIVE DATA: Less redness, less tenderness; however, the diffuse edema persist. ASSESSMENT AND PLAN: Venous study has been ordered to see if there are any major venous obstructions in the left thigh where she had a previous surgery. Dictated By: In Liz Herndon MD /[email or web address]/kylah /Document#: [id number]
--- NOTE | 2017-02-17 04:22 | CONS ---
DATE OF ADMISSION: 02/11/2017 DATE OF CONSULTATION: 02/16/2017 Room number is [address]B. Dr. Alcantar: Thank you for the referral. HISTORY OF PRESENT ILLNESS: The patient is a 56-year-old female, admitted for the swelling in the left lower extremity. Initially it was thought as a cellulitis. Patient was started on antibiotic. Swelling reduced but persisted. She had a DVT study, which was negative. CAT scan of the leg was done, which showed swelling in the lower extremity including thigh. The diagnosis of lymphedema eventually entertained. GI consult was called in, not only for the lymphedema in the lower extremity, but also for abnormal finding on the CAT scan. The patient was found to have thickening of the rectum. Inflammation versus neoplasm was suspected. The patient was interrogated. She said the swelling has been there for the last 6-7 days. No GI bleeding. No abdominal pain. No nausea, no vomiting. She did have uterine cancer for which she had irradiation treatment 10-15 years ago. SOCIAL HISTORY: Does not smoke or drink alcohol. MEDICATION: All reviewed. The patient was on: 1. Dicyclomine. 2. Zofran. 3. Ferrous sulfate. ALLERGIES: NONE. PAST MEDICAL HISTORY: Hypertension and diabetes mellitus. PAST SURGICAL HISTORY: She also had a surgery on the left thigh 3 years ago. The exact reason is not clear-cut. Patient is not a good historian. It is very difficult to extract history out of her. REVIEW OF SYSTEMS: Negative. PHYSICAL EXAMINATION: GENERAL APPEARANCE: Well built, nourished, not in distress. VITAL SIGNS: Stable. HEENT: Unremarkable. NECK: Supple. No thyromegaly. No lymphadenopathy. HEART: No murmur, gallop, or click. LUNGS: Clear. ABDOMEN: Benign. EXTREMITIES: She has left leg edema with hyperemia in the leg. The edema was somewhat pitting. There was a scar on the left thigh. BEHAVIORAL HEALTH COUNSELOR: Grossly within normal limits. IMPRESSION: 1. Thickening of the rectum, rule out radiation proctitis versus irritable bowel disease versus malignancy. 2. Left leg edema, most probably lymphedema, related to her previous surgery for uterine cancer and radiation. 3. Possible circular cellulitis of left lower extremity for which she is on antibiotic. 4. Diabetes mellitus. 5. Hypertension. PLAN: At this point, is to continue present care. We will proceed with a colonoscopy the day after tomorrow. Discussed with the patient and has agreed for the procedure. Dictated By: Chuck Lemus MD /[email or web address]/caron /Document#: [id number]
--- NOTE | 2017-02-17 04:26 | RADRPT ---
PROCEDURE: Ultrasound examination of the left lower extremity with Doppler. CLINICAL INDICATION: Left leg pain and swelling. TECHNIQUE: Multiple sonographic images of the left lower extremity veins were performed with hagan scale and color Doppler. COMPARISON: 02/11/2017. FINDINGS: The left common femoral, superficial femoral and popliteal veins demonstrate normal color flow, wave forms, compression and response to augmentation. There is no evidence of deep venous thrombosis. IMPRESSION: No evidence of deep venous thrombosis within the left lower extremity. .Mariano Blair MD, Date Time Electronically viewed and signed by .Mariano Blair MD, on 02/17/2017 04:26 .T/
[2017-02-17] MEDS: PANTOPRAZOLE (EC) 40 MG TAB PO SCH (05:17)
[2017-02-17] MEDS: VANCOMYCIN 1 GM in NS 250 ML IVPB SCH ×2 (05:18→17:09)
[2017-02-17 05:33] LABS: ABNORMAL IP MESSAGE 1; BASOPHILS % 0.3 % (0.0-2.0); EOSINOPHILS # 0.2 10^3/ul (0.0-0.5); EOSINOPHILS % 2.9 % (0.0-7.0); HEMATOCRIT 27.9 % (37.0-47.0); HEMOGLOBIN 9.5 g/dl (12.0-16.0); LYMPHOCYTES % 13.9 % (15.0-51.0); MEAN CORPUSCULAR HEMOGLOBIN 29.2 pg (29.0-33.0); MEAN CORPUSCULAR HGB CONC 34.1 g/dl (32.0-37.0); MEAN CORPUSCULAR VOLUME 85.8 fl (82.0-101.0); MEAN PLATELET VOLUME 11.3 fl (7.4-10.4); MONOCYTE # 0.6 10^3/ul (0.3-0.9); MONOCYTES % 7.8 % (0.0-11.0); NEUTROPHILS % 69.9 % (39.0-77.0); NUCLEATED RED BLOOD CELLS% 0.4 /100WBC (0.0-0.0); PLATELET COUNT 234 10^3/UL (140-415); RED BLOOD COUNT 3.25 10^6/ul (4.20-5.40); RED CELL DISTRIBUTION WIDTH 13.6 % (11.5-14.5); WHITE BLOOD COUNT 7.5 10^3/ul (4.8-10.8)
[2017-02-17 06:19] LABS: POSITIVE DIFF @See below
[2017-02-17] MEDS: INSULIN ASPART [NOVOLOG] 3 ML PEN SC SCH ×7 (08:04→20:23)
[2017-02-17] MEDS: INSULIN GLARGINE [LANtus] 3 ML PEN SC SCH (08:05)
[2017-02-17] MEDS: ASPIRIN (EC) 81 MG TAB PO SCH (08:07)
[2017-02-17 08:15] VITALS: BP 128/62; RESP 16
[2017-02-17 13:16] VITALS: BP 142/65; RESP 16
[2017-02-17] MEDS ORDERED: BISACODYL (EC) 5 MG TAB PO ONE ×2 (14:00→20:00)
--- NOTE | 2017-02-17 14:59 | PN ---
Date/Time of Note Date/Time of Note DATE: 02/17/17 TIME: 14:56 Assessment/Plan VTE Prophylaxis VTE Prophylaxis Intervention: LMWH Lines/Catheters IV Catheter Type (from Nrs): Peripheral IV Urinary Cath still in place: No Assessment/Plan Chief Complaint/Hosp Course Physical exam Constitutional: alert, oriented Musculoskeletal: diffuse swelling (left thigh leg) with redness leg+ not much improved 56 y/o with 1 Left thigh cellulitis with SIRS, CT +cellulitis, no drainable collection, however CT A+P ? Proctitis vs Inflammatory disease vs Inflammatory neoplasm ? Lymphedema 2. Dm type II controlled 3. Anemia 4. Dehydration 5 HX Uterine Ca s/p Radiation Assessment/Plan 1. Continue antibiotics with Vancomycin 2 Consulted GI for rectal thickening and lymphedema > Colonoscopy tmw 2. LLE elevation, f/u ID RECS 3. Per Dr Katrina hernandez c/w with abx, no surgical intervention 4. GI and DVT prophylaxsis( hold lovenox due to thrombocytopenia) 5 Insulin for BG Problems: Subjective 24 Hr Interval Summary Free Text/Dictation Pt feels the same Pt says that she had uterine Ca and had received radiation in 2000 at [facility] Exam/Review of Systems Vital Signs Vitals Vital Signs Date Time Temp Pulse Resp B/P Pulse Ox O2 Delivery O2 Flow Rate FiO2 02/17/17 13:16 98.3 86 16 142/65 99 Intake and Output 02/16/17 02/16/17 02/17/17 15:00 23:00 07:00 Intake Total 850 ml 930 ml 50 ml Balance 850 ml 930 ml 50 ml Results Result Diagram: 02/17/17 0514 02/16/17 0516 Results 24 hrs Laboratory Tests Test 02/16/17 18:07 02/16/17 20:28 02/17/17 05:14 02/17/17 07:53 Bedside Glucose 94 76 157 White Blood Count 7.5 # Red Blood Count 3.25 L Hemoglobin 9.5 L Hematocrit 27.9 L Mean Corpuscular Volume 85.8 Mean Corpuscular Hemoglobin 29.2 Mean Corpuscular Hemoglobin Concent 34.1 Red Cell Distribution Width 13.6 Platelet Count 234 # Mean Platelet Volume 11.3 H Neutrophils % 69.9 Lymphocytes % 13.9 L Monocytes % 7.8 Eosinophils % 2.9 Basophils % 0.3 Nucleated Red Blood Cells % 0.4 H Neutrophils # (Manual) 5 Lymphocytes # 1.0 Monocytes # 0.6 Eosinophils # 0.2 Basophils # 0.0 Nucleated Red Blood Cells # 0.0 Test 02/17/17 12:28 Bedside Glucose 94 Medications Medications Current Medications Pantoprazole 40 mg 40 mg DAILY@06 PO Last administered on 02/17/17 05:17; Admin Dose 40 MG; Start 02/12/17 at 06:00 Ceftriaxone Sodium (Rocephin) 50 ml @ 100 mls/hr Q24H IVPB Last administered on 02/17/17 01:52; Admin Dose 100 MLS/HR; Start 02/12/17 at 02:00 Enoxaparin Sodium (Lovenox) 40 mg DAILY SC Last administered on 02/14/17 08:19 ; Admin Dose 40 MG; Start 02/12/17 at 09:00; Status Future Hold Morphine Sulfate (morphine) 2 mg Q4H PRN IV PAIN Last administered on 11:21; Admin Dose 2 MG; Start 02/12/17 at 02:00 Ondansetron HCl (Zofran Inj) 4 mg Q4H PRN IV NAUSEA AND/OR VOMITING; Start at 02:00 Aspirin (Halfprin) 81 mg DAILY PO Last administered on 02/17/17 08:07; Admin Dose 81 MG; Start 02/12/17 at 09:00 Acetaminophen (Tylenol Tab) 650 mg Q6H PRN PO PAIN AND OR ELEVATED TEMP Last administered on 02/13/17 08:42; Admin Dose 650 MG; Start 02/12/17 at 02:00 Insulin Glargine (Lantus) 10 unit DAILY@08 SC Last administered on 02/17/17 08 :05; Admin Dose 10 UNIT; Start 02/12/17 at 08:00 Diagnostic Test (Pha) (Accu-Chek) 1 ea 02 XX ; Start 02/12/17 at 02:00 Miscellaneous Information 1 ea NOTE XX ; Start 02/12/17 at 03:00 Glucose (Glutose) 15 gm Q15M PRN PO DECREASED GLUCOSE; Start 02/12/17 at 03:00 Glucose (Glutose) 22.5 gm Q15M PRN PO DECREASED GLUCOSE; Start 02/12/17 at 03: 00 Dextrose (D50w Syringe) 25 ml Q15M PRN IV DECREASED GLUCOSE; Start 02/12/17 at 03:00 Dextrose (D50w Syringe) 50 ml Q15M PRN IV DECREASED GLUCOSE; Start 02/12/17 at 03:00 Glucagon (Glucagen) 1 mg Q15M PRN IM DECREASED GLUCOSE; Start 02/12/17 at 03:00 Glucose 15 gm 15 gm Q15M PRN BUCCAL DECREASED GLUCOSE; Start 02/12/17 at 03:00 Vancomycin HCl (Vancocin) 250 ml @ 125 mls/hr Q12H IVPB Last administered on t 05:18; Admin Dose 125 MLS/HR; Start 02/13/17 at 17:30 Miscellaneous Information (*Rx Drug Level Order Reminder*) VANCOMYCIN TROUGH ON 8... ONCE ONCE XX ; Start 02/18/17 at 04:30; Stop 02/18/17 at 04:31 Polyethylene Glycol/ Electrolytes (Golytely) 2,000 ml ONCE ONCE PO ; Start at 15:00; Stop 02/17/17 at 15:01 FRANCE CARLSON MD Feb 17, 2017 14:59
[2017-02-17] MEDS ORDERED: PEG/ELECTROLYTES 4L BTL PO ONE ×2 (15:00→20:00)
[2017-02-17 19:18] VITALS: BP 155/70; RESP 16
--- NOTE | 2017-02-17 20:10 | PN ---
DATE: 02/17/2017 SUBJECTIVE DATA: No events overnight. The patient is alert, sitting up in a chair eating lunch. She is in no distress and no fevers. LABORATORY AND DIAGNOSTIC DATA: WBC 7.5, no shift, no bounce. BUN 6, creatinine 0.62. MICROBIOLOGY: Blood cultures remain negative. ANTIMICROBIALS: The patient is on IV vancomycin and Rocephin, Vanco trough on the was 10.8. PHYSICAL EXAMINATION: GENERAL: This is a well-developed, well-nourished, middle-aged woman, who is alert, in no distress. HEENT: Head atraumatic, normocephalic. Sclerae anicteric. Buccal mucosa pink. NECK: Supple. CHEST: Rise symmetrical. Breath sounds clear. EXTREMITIES: With persistent left lower extremity edema and erythema below knee. ASSESSMENT: 1. Left lower extremity chronic lymphedema with acute cellulitis. 2. Thickening of the rectum, rule out radiation proctitis versus malignancy. 3. Diabetes. 4. Hypertension. PLAN: 1. The patient remains stable. 2. She is being followed by multiple consultants. 3. She is on appropriate antibiotics. 4. Pending colonoscopy. 5. We will keep left lower extremity elevated at all times. Ortho recommendations noted. Dictated By: Shauna Mitchell NP /[email or web address] /Document#: [id number]
--- NOTE | 2017-02-17 21:09 | CONS ---
Date/Time of Note Date/Time of Note DATE: 02/17/17 TIME: 21:06 Assessment/Plan Assessment/Plan Additional Assessment/Plan : 1. Thickening of the rectum, rule out radiation proctitis versus irritable bowel disease versus malignancy. 2. Left leg edema, most probably lymphedema, related to her previous surgery for uterine cancer and radiation. 3. Possible cellulitis of left lower extremity for which she is on antibiotic. 4. Diabetes mellitus. 5. Hypertension. Plan colonoscopy tomorrow Consultation Date/Type/Reason Admit Date/Time Feb 11, 2017 at 22:12 Initial Consult Date 02/12/17 Type of Consultation: id Exam/Review of Systems Vital Signs Vitals Vital Signs Date Time Temp Pulse Resp B/P Pulse Ox O2 Delivery O2 Flow Rate FiO2 02/17/17 19:18 98.4 87 16 155/70 99 Intake and Output 02/16/17 02/16/17 02/17/17 14:59 22:59 06:59 Intake Total 850 ml 930 ml 50 ml Balance 850 ml 930 ml 50 ml Exam Constitutional: alert, oriented, well developed Psych: nl mood/affect, no complaints Head: atraumatic, normocephalic Eyes: EOMI, PERRL, nl conjunctiva, nl lids, nl sclera ENMT: nl external ears & nose, nl lips & teeth, nl nasal mucosa & septum Neck: non-tender, supple Respiratory: clear to auscultation, normal air movement Cardiovascular: nl pulses, regular rate and rhythm Gastrointestinal: nl liver, spleen, non-tender, soft Musculoskeletal: nl extremities to inspection, nl gait and stance Extremities: normal pulses Neurological: [employer] II-XII intact, nl mental status, nl speech, nl strength Skin: nl turgor, No rash or lesions Lymph: nl lymph nodes Results Result Diagram: 02/17/17 0514 02/16/17 0516 Results 24 hrs Laboratory Tests Test 02/17/17 05:14 02/17/17 07:53 02/17/17 12:28 02/17/17 17:10 White Blood Count 7.5 # Red Blood Count 3.25 L Hemoglobin 9.5 L Hematocrit 27.9 L Mean Corpuscular Volume 85.8 Mean Corpuscular Hemoglobin 29.2 Mean Corpuscular Hemoglobin Concent 34.1 Red Cell Distribution Width 13.6 Platelet Count 234 # Mean Platelet Volume 11.3 H Neutrophils % 69.9 Lymphocytes % 13.9 L Monocytes % 7.8 Eosinophils % 2.9 Basophils % 0.3 Nucleated Red Blood Cells % 0.4 H Neutrophils # (Manual) 5 Lymphocytes # 1.0 Monocytes # 0.6 Eosinophils # 0.2 Basophils # 0.0 Nucleated Red Blood Cells # 0.0 Bedside Glucose 157 94 98 Test 02/17/17 20:22 Bedside Glucose 103 Medications Medications Current Medications Pantoprazole 40 mg 40 mg DAILY@06 PO Last administered on 02/17/17 05:17; Admin Dose 40 MG; Start 02/12/17 at 06:00 Ceftriaxone Sodium (Rocephin) 50 ml @ 100 mls/hr Q24H IVPB Last administered on 02/17/17 01:52; Admin Dose 100 MLS/HR; Start 02/12/17 at 02:00 Enoxaparin Sodium (Lovenox) 40 mg DAILY SC Last administered on 02/14/17 08:19 ; Admin Dose 40 MG; Start 02/12/17 at 09:00; Status Future Hold Morphine Sulfate (morphine) 2 mg Q4H PRN IV PAIN Last administered on 11:21; Admin Dose 2 MG; Start 02/12/17 at 02:00 Ondansetron HCl (Zofran Inj) 4 mg Q4H PRN IV NAUSEA AND/OR VOMITING; Start at 02:00 Aspirin (Halfprin) 81 mg DAILY PO Last administered on 02/17/17 08:07; Admin Dose 81 MG; Start 02/12/17 at 09:00 Acetaminophen (Tylenol Tab) 650 mg Q6H PRN PO PAIN AND OR ELEVATED TEMP Last administered on 02/13/17 08:42; Admin Dose 650 MG; Start 02/12/17 at 02:00 Insulin Glargine (Lantus) 10 unit DAILY@08 SC Last administered on 02/17/17 08 :05; Admin Dose 10 UNIT; Start 02/12/17 at 08:00 Diagnostic Test (Pha) (Accu-Chek) 1 ea 02 XX ; Start 02/12/17 at 02:00 Miscellaneous Information 1 ea NOTE XX ; Start 02/12/17 at 03:00 Glucose (Glutose) 15 gm Q15M PRN PO DECREASED GLUCOSE; Start 02/12/17 at 03:00 Glucose (Glutose) 22.5 gm Q15M PRN PO DECREASED GLUCOSE; Start 02/12/17 at 03: 00 Dextrose (D50w Syringe) 25 ml Q15M PRN IV DECREASED GLUCOSE; Start 02/12/17 at 03:00 Dextrose (D50w Syringe) 50 ml Q15M PRN IV DECREASED GLUCOSE; Start 02/12/17 at 03:00 Glucagon (Glucagen) 1 mg Q15M PRN IM DECREASED GLUCOSE; Start 02/12/17 at 03:00 Glucose 15 gm 15 gm Q15M PRN BUCCAL DECREASED GLUCOSE; Start 02/12/17 at 03:00 Vancomycin HCl (Vancocin) 250 ml @ 125 mls/hr Q12H IVPB Last administered on t 17:09; Admin Dose 125 MLS/HR; Start 02/13/17 at 17:30 Miscellaneous Information (*Rx Drug Level Order Reminder*) VANCOMYCIN TROUGH ON 8... ONCE ONCE XX ; Start 02/18/17 at 04:30; Stop 02/18/17 at 04:31 GRADY MARTÍNEZ MD Feb 17, 2017 21:08
[2017-02-18] VITALS (13 sets, daily range): BP systolic 118–156; BP diastolic 60–74; PULSE 87–94; RESP 15–23
[2017-02-18] MEDS: ACCU-CHEK XX SCH (02:00)
[2017-02-18] MEDS: CEFTRIAXONE 1 GM/50 ML (PMX) 50 ML IVPB SCH (02:17)
[2017-02-18] MEDS: VANCOMYCIN 1 GM in NS 250 ML IVPB SCH ×3 (05:30→17:36)
[2017-02-18 05:36] LABS: BASOPHILS % 0.2 % (0.0-2.0); EOSINOPHILS # 0.2 10^3/ul (0.0-0.5); EOSINOPHILS % 2.4 % (0.0-7.0); HEMATOCRIT 28.8 % (37.0-47.0); HEMOGLOBIN 9.4 g/dl (12.0-16.0); LYMPHOCYTES # 1.1 10^3/ul (0.8-2.9); LYMPHOCYTES % 13.5 % (15.0-51.0); MEAN CORPUSCULAR HEMOGLOBIN 28.1 pg (29.0-33.0); MEAN CORPUSCULAR HGB CONC 32.6 g/dl (32.0-37.0); MEAN CORPUSCULAR VOLUME 86.2 fl (82.0-101.0); MEAN PLATELET VOLUME 11.3 fl (7.4-10.4); MONOCYTE # 0.6 10^3/ul (0.3-0.9); MONOCYTES % 6.6 % (0.0-11.0); NEUTROPHILS % 73.7 % (39.0-77.0); PLATELET COUNT 283 10^3/UL (140-415); RED BLOOD COUNT 3.34 10^6/ul (4.20-5.40); WHITE BLOOD COUNT 8.3 10^3/ul (4.8-10.8)
[2017-02-18 05:46] LABS: CREATININE 0.58 mg/dl (0.44-1.00)
[2017-02-18] MEDS: PANTOPRAZOLE (EC) 40 MG TAB PO SCH (05:51)
[2017-02-18 06:16] LABS: POTASSIUM 2.9 mmol/L (3.5-5.1)
[2017-02-18] MEDS ORDERED: POTASSIUM CHLORIDE 250 ML IVPB ONE (07:00)
[2017-02-18] MEDS: INSULIN ASPART [NOVOLOG] 3 ML PEN SC SCH ×7 (08:00→20:56)
[2017-02-18] MEDS: ASPIRIN (EC) 81 MG TAB PO SCH (08:06)
[2017-02-18] MEDS: INSULIN GLARGINE [LANtus] 3 ML PEN SC SCH (08:06)
[2017-02-18] MEDS ORDERED: FENTAnyl 50 MCG/ML VIAL ONE (10:09)
[2017-02-18] MEDS ORDERED: PROPOFOL 20 ML ONE (10:09)
[2017-02-18] MEDS ORDERED: MIDAZOLAM 1 MG/ML 2 ML INJ ONE (10:09)
--- NOTE | 2017-02-18 10:30 | OPPN ---
Date/Time of Note Date/Time of Note DATE: 02/18/17 TIME: 10:28 Operative Report Preoperative Diagnosis abnormal CT scan Postoperative Diagnosis same Operation/Procedure Performed colonoscopy,negative.except,mild radiation proctitis Provider: GRADY MARTÍNEZ MD Anesthesia Type: MAC Estimated blood loss: none Transfusion Required: no Specimen: none Grafts/Implants: none Complications: no GRADY MARTÍNEZ MD Feb 18, 2017 10:30
--- NOTE | 2017-02-18 11:12 | GILP ---
DATE OF PROCEDURE: HISTORY OF PRESENT ILLNESS: A 56-year-old female undergoing this procedure for colon cancer screening and also for abnormal finding on the CAT scan. She had a thickening of the rectum, diagnosis of malignancy entertained, and at the site she has a left extremity lymphedema. The risks of the procedure, related complications, anesthetic and alternatives were discussed. Informed consent was obtained. DESCRIPTION OF PROCEDURE: The patient brought to the GI lab and sedated by the anesthesiologist. After optimum sedation, digital examination was done, which was normal. Scope was passed as much into the rectum, advanced to sigmoid, descending, transverse colon all the way into the cecum. Appendiceal orifice identified. IC valve identified. Rest of the colon was normal. There was some scattered stool throughout the colon. The rectum was thoroughly inspected. No inflammation. I saw no malignancy identified. Mucosa appeared normal. There are some dendritic branches of the vessel consistent with the diagnosis of mild radiation proctitis. IMPRESSION: 1. Mild radiation proctitis. Otherwise negative, all the way into cecum. 2. Preparation was adequate. PLAN: The patient's lymphedema might be related to previous radiation treatment and lymph node removal. Dictated By: Chuck Lemus MD /[email or web address]/ /Document#: [id number] CC: Mercy Rutledge MD;*[facility]*
--- NOTE | 2017-02-18 14:07 | CONS ---
Date/Time of Note Date/Time of Note DATE: 02/18/17 TIME: 14:05 Assessment/Plan Assessment/Plan Chief Complaint/Hosp Course SUBJECTIVE DATA: No acute changes. No fevers MICROBIOLOGY: Blood cultures remain negative. Urinalysis was negative for nitrite and leukocyte esterase. ANTIMICROBIALS: IV vancomycin and Rocephin. PHYSICAL EXAMINATION: GENERAL: This is a well-developed, well-nourished, middle-aged woman, who is awake, in no distress. HEENT: Head atraumatic, normocephalic. Sclerae anicteric. Buccal mucosa pink. NECK: Supple. CHEST: Rise symmetrical. Breath sounds clear. HEART: S1, S2. ABDOMEN: Soft, bowel sounds present. EXTREMITIES: Left lower extremity edema with erythema. ASSESSMENT: 1. Systemic inflammatory response syndrome with fevers and leukocytosis secondary number 2. 2. Left lower extremity cellulitis ?chronic lymphedema==> no evidence of deep venous thrombosis (DVT) as per ultrasound. 3. Hypertension. 4. Diabetes. PLAN: The patient remains stable, continue abx, LLE elevation, f/u GI/ortho rec -s, pending colonoscopy RAMIRO RN Problems: Consultation Date/Type/Reason Admit Date/Time Feb 11, 2017 at 22:12 Initial Consult Date 02/12/17 Type of Consultation: id Exam/Review of Systems Vital Signs Vitals Vital Signs Date Time Temp Pulse Resp B/P Pulse Ox O2 Delivery O2 Flow Rate FiO2 02/18/17 11:07 23 131/66 97 Nasal Cannula 2.0 02/18/17 10:33 97.8 87 Intake and Output 02/17/17 02/17/17 02/18/17 15:00 23:00 07:00 Intake Total 250 ml 1330 ml 410 ml Balance 250 ml 1330 ml 410 ml Results Result Diagram: 02/18/17 0430 02/18/17 0430 Results 24 hrs Laboratory Tests Test 02/17/17 17:10 02/17/17 20:22 02/18/17 04:30 02/18/17 08:01 Bedside Glucose 98 103 130 White Blood Count 8.3 Red Blood Count 3.34 L Hemoglobin 9.4 L Hematocrit 28.8 L Mean Corpuscular Volume 86.2 Mean Corpuscular Hemoglobin 28.1 L Mean Corpuscular Hemoglobin Concent 32.6 Red Cell Distribution Width 14.0 Platelet Count 283 # Mean Platelet Volume 11.3 H Neutrophils % 73.7 Lymphocytes % 13.5 L Monocytes % 6.6 Eosinophils % 2.4 Basophils % 0.2 Nucleated Red Blood Cells % 0.0 Neutrophils # (Manual) 6 Lymphocytes # 1.1 Monocytes # 0.6 Eosinophils # 0.2 Basophils # 0.0 Nucleated Red Blood Cells # 0.0 Sodium Level 139 Potassium Level 2.9 *L Chloride Level 104 Carbon Dioxide Level 27 Anion Gap 11 Blood Urea Nitrogen 4 L Creatinine 0.58 Glucose Level 125 Calcium Level 8.0 L Vancomycin Level Trough 14.4 Test 02/18/17 12:11 Bedside Glucose 111 Medications Medications Current Medications Pantoprazole 40 mg 40 mg DAILY@06 PO Last administered on 02/17/17 05:17; Admin Dose 40 MG; Start 02/12/17 at 06:00 Ceftriaxone Sodium (Rocephin) 50 ml @ 100 mls/hr Q24H IVPB Last administered on 02/18/17 02:17; Admin Dose 100 MLS/HR; Start 02/12/17 at 02:00 Enoxaparin Sodium (Lovenox) 40 mg DAILY SC Last administered on 02/14/17 08:19 ; Admin Dose 40 MG; Start 02/12/17 at 09:00; Status Future Hold Morphine Sulfate (morphine) 2 mg Q4H PRN IV PAIN Last administered on 11:21; Admin Dose 2 MG; Start 02/12/17 at 02:00 Ondansetron HCl (Zofran Inj) 4 mg Q4H PRN IV NAUSEA AND/OR VOMITING; Start at 02:00 Aspirin (Halfprin) 81 mg DAILY PO Last administered on 02/17/17 08:07; Admin Dose 81 MG; Start 02/12/17 at 09:00 Acetaminophen (Tylenol Tab) 650 mg Q6H PRN PO PAIN AND OR ELEVATED TEMP Last administered on 02/13/17 08:42; Admin Dose 650 MG; Start 02/12/17 at 02:00 Insulin Glargine (Lantus) 10 unit DAILY@08 SC Last administered on 02/18/17 08 :06; Admin Dose 10 UNIT; Start 02/12/17 at 08:00 Diagnostic Test (Pha) (Accu-Chek) 1 ea 02 XX ; Start 02/12/17 at 02:00 Miscellaneous Information 1 ea NOTE XX ; Start 02/12/17 at 03:00 Glucose (Glutose) 15 gm Q15M PRN PO DECREASED GLUCOSE; Start 02/12/17 at 03:00 Glucose (Glutose) 22.5 gm Q15M PRN PO DECREASED GLUCOSE; Start 02/12/17 at 03: 00 Dextrose (D50w Syringe) 25 ml Q15M PRN IV DECREASED GLUCOSE; Start 02/12/17 at 03:00 Dextrose (D50w Syringe) 50 ml Q15M PRN IV DECREASED GLUCOSE; Start 02/12/17 at 03:00 Glucagon (Glucagen) 1 mg Q15M PRN IM DECREASED GLUCOSE; Start 02/12/17 at 03:00 Glucose 15 gm 15 gm Q15M PRN BUCCAL DECREASED GLUCOSE; Start 02/12/17 at 03:00 Vancomycin HCl (Vancocin) 250 ml @ 125 mls/hr Q12H IVPB Last administered on 06:30; Admin Dose 125 MLS/HR; Start 02/13/17 at 17:30 JACQUELINE DOMINGUEZ NP Feb 18, 2017 14:07
--- NOTE | 2017-02-18 16:48 | PN ---
Date/Time of Note Date/Time of Note DATE: 02/18/17 TIME: 16:46 Assessment/Plan VTE Prophylaxis VTE Prophylaxis Intervention: LMWH Lines/Catheters IV Catheter Type (from Nrs): Peripheral IV Urinary Cath still in place: No Assessment/Plan Chief Complaint/Hosp Course Physical exam Constitutional: alert, oriented Musculoskeletal: diffuse swelling (left thigh leg) with redness leg+ improved 56 y/o with 1 Left thigh cellulitis with SIRS, CT +cellulitis, no drainable collection, however CT A+P ? Proctitis vs Inflammatory disease vs Inflammatory neoplasm ? Lymphedema 2. Dm type II controlled 3. Anemia 4. Dehydration 5 HX Uterine Ca s/p Radiation Assessment/Plan 1. Continue antibiotics with Vancomycin 2 Consulted GI for rectal thickening and lymphedema > Colonoscopy negative for colon mass 2. LLE elevation, f/u ID RECS 3. Per Dr Katrina hernandez c/w with abx, no surgical intervention 4. GI and DVT prophylaxsis( hold lovenox due to thrombocytopenia) 5 Insulin for BG Problems: Subjective 24 Hr Interval Summary Free Text/Dictation s/p Colonoscopy today with mild radiation proctitis Redness improving Exam/Review of Systems Vital Signs Vitals Vital Signs Date Time Temp Pulse Resp B/P Pulse Ox O2 Delivery O2 Flow Rate FiO2 02/18/17 14:00 98.2 85 16 118/62 97 02/18/17 11:07 Nasal Cannula 2.0 Intake and Output 02/17/17 02/17/17 02/18/17 15:00 23:00 07:00 Intake Total 250 ml 1330 ml 410 ml Balance 250 ml 1330 ml 410 ml Results Result Diagram: 02/18/17 0430 02/18/17 0430 Results 24 hrs Laboratory Tests Test 02/17/17 17:10 02/17/17 20:22 02/18/17 04:30 02/18/17 08:01 Bedside Glucose 98 103 130 White Blood Count 8.3 Red Blood Count 3.34 L Hemoglobin 9.4 L Hematocrit 28.8 L Mean Corpuscular Volume 86.2 Mean Corpuscular Hemoglobin 28.1 L Mean Corpuscular Hemoglobin Concent 32.6 Red Cell Distribution Width 14.0 Platelet Count 283 # Mean Platelet Volume 11.3 H Neutrophils % 73.7 Lymphocytes % 13.5 L Monocytes % 6.6 Eosinophils % 2.4 Basophils % 0.2 Nucleated Red Blood Cells % 0.0 Neutrophils # (Manual) 6 Lymphocytes # 1.1 Monocytes # 0.6 Eosinophils # 0.2 Basophils # 0.0 Nucleated Red Blood Cells # 0.0 Sodium Level 139 Potassium Level 2.9 *L Chloride Level 104 Carbon Dioxide Level 27 Anion Gap 11 Blood Urea Nitrogen 4 L Creatinine 0.58 Glucose Level 125 Calcium Level 8.0 L Vancomycin Level Trough 14.4 Test 02/18/17 12:11 Bedside Glucose 111 Medications Medications Current Medications Pantoprazole 40 mg 40 mg DAILY@06 PO Last administered on 02/17/17 05:17; Admin Dose 40 MG; Start 02/12/17 at 06:00 Ceftriaxone Sodium (Rocephin) 50 ml @ 100 mls/hr Q24H IVPB Last administered on 02/18/17 02:17; Admin Dose 100 MLS/HR; Start 02/12/17 at 02:00 Enoxaparin Sodium (Lovenox) 40 mg DAILY SC Last administered on 02/14/17 08:19 ; Admin Dose 40 MG; Start 02/12/17 at 09:00; Status Future Hold Morphine Sulfate (morphine) 2 mg Q4H PRN IV PAIN Last administered on 11:21; Admin Dose 2 MG; Start 02/12/17 at 02:00 Ondansetron HCl (Zofran Inj) 4 mg Q4H PRN IV NAUSEA AND/OR VOMITING; Start at 02:00 Aspirin (Halfprin) 81 mg DAILY PO Last administered on 02/17/17 08:07; Admin Dose 81 MG; Start 02/12/17 at 09:00 Acetaminophen (Tylenol Tab) 650 mg Q6H PRN PO PAIN AND OR ELEVATED TEMP Last administered on 02/13/17 08:42; Admin Dose 650 MG; Start 02/12/17 at 02:00 Insulin Glargine (Lantus) 10 unit DAILY@08 SC Last administered on 02/18/17 08 :06; Admin Dose 10 UNIT; Start 02/12/17 at 08:00 Diagnostic Test (Pha) (Accu-Chek) 1 ea 02 XX ; Start 02/12/17 at 02:00 Miscellaneous Information 1 ea NOTE XX ; Start 02/12/17 at 03:00 Glucose (Glutose) 15 gm Q15M PRN PO DECREASED GLUCOSE; Start 02/12/17 at 03:00 Glucose (Glutose) 22.5 gm Q15M PRN PO DECREASED GLUCOSE; Start 02/12/17 at 03: 00 Dextrose (D50w Syringe) 25 ml Q15M PRN IV DECREASED GLUCOSE; Start 02/12/17 at 03:00 Dextrose (D50w Syringe) 50 ml Q15M PRN IV DECREASED GLUCOSE; Start 02/12/17 at 03:00 Glucagon (Glucagen) 1 mg Q15M PRN IM DECREASED GLUCOSE; Start 02/12/17 at 03:00 Glucose 15 gm 15 gm Q15M PRN BUCCAL DECREASED GLUCOSE; Start 02/12/17 at 03:00 Vancomycin HCl (Vancocin) 250 ml @ 125 mls/hr Q12H IVPB Last administered on 06:30; Admin Dose 125 MLS/HR; Start 02/13/17 at 17:30 FRANCE CARLSON MD Feb 18, 2017 16:47
[2017-02-19] MEDS: ACCU-CHEK XX SCH (02:00)
[2017-02-19] MEDS: CEFTRIAXONE 1 GM/50 ML (PMX) 50 ML IVPB SCH (02:01)
[2017-02-19 02:09] VITALS: BP 128/62; RESP 18
[2017-02-19] MEDS: VANCOMYCIN 1 GM in NS 250 ML IVPB SCH (04:55)
[2017-02-19] MEDS: PANTOPRAZOLE (EC) 40 MG TAB PO SCH (06:19)
[2017-02-19 06:43] LABS: CALCIUM 8.1 mg/dl (8.4-10.2); CREATININE 0.6 mg/dl (0.44-1.00); POTASSIUM 3.8 mmol/L (3.5-5.1)
[2017-02-19 07:25] VITALS: BP 129/69; RESP 18
[2017-02-19] MEDS: INSULIN ASPART [NOVOLOG] 3 ML PEN SC SCH ×4 (08:04→12:09)
[2017-02-19] MEDS: ASPIRIN (EC) 81 MG TAB PO SCH (08:05)
[2017-02-19] MEDS: INSULIN GLARGINE [LANtus] 3 ML PEN SC SCH (08:05)
--- NOTE | 2017-02-19 10:56 | CONS ---
Date/Time of Note Date/Time of Note DATE: 02/19/17 TIME: 10:54 Assessment/Plan Assessment/Plan Additional Assessment/Plan Additional Assessment/Plan : 1. Thickening of the rectum, rule out radiation proctitis versus irritable bowel disease versus malignancy. 2. Left leg edema, most probably lymphedema, related to her previous surgery for uterine cancer and radiation. 3. Possible cellulitis of left lower extremity for which she is on antibiotic. 4. Diabetes mellitus. 5. Hypertension. 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 Plan Complete the course of antibiotic for cellulitis Consultation Date/Type/Reason Admit Date/Time Feb 11, 2017 at 22:12 Initial Consult Date 02/12/17 Type of Consultation: id 24 HR Interval Summary Free Text/Dictation Complaints of swelling of lower extremity left leg Exam/Review of Systems Vital Signs Vitals Vital Signs Date Time Temp Pulse Resp B/P Pulse Ox O2 Delivery O2 Flow Rate FiO2 02/19/17 07:25 98.8 86 18 129/69 97 02/18/17 11:07 Nasal Cannula 2.0 Intake and Output 02/18/17 02/18/17 02/19/17 15:00 23:00 07:00 Intake Total 500 ml 970 ml 450 ml Balance 500 ml 970 ml 450 ml Exam Neck: non-tender, supple Respiratory: clear to auscultation, normal air movement Cardiovascular: nl pulses, regular rate and rhythm Gastrointestinal: nl liver, spleen, non-tender, soft Extremities: edema (Left leg and thigh) Results Result Diagram: 02/18/17 0430 02/19/17 0536 Results 24 hrs Laboratory Tests Test 02/18/17 12:11 02/18/17 17:24 02/18/17 20:51 02/19/17 05:36 Bedside Glucose 111 104 120 Sodium Level 144 Potassium Level 3.8 Chloride Level 104 Carbon Dioxide Level 28 Anion Gap 16 Blood Urea Nitrogen 7 Creatinine 0.60 Glucose Level 136 Calcium Level 8.1 L Test 02/19/17 08:03 Bedside Glucose 137 Medications Medications Current Medications Pantoprazole 40 mg 40 mg DAILY@06 PO Last administered on 02/19/17 06:19; Admin Dose 40 MG; Start 02/12/17 at 06:00 Ceftriaxone Sodium (Rocephin) 50 ml @ 100 mls/hr Q24H IVPB Last administered on 02/19/17 02:01; Admin Dose 100 MLS/HR; Start 02/12/17 at 02:00 Enoxaparin Sodium (Lovenox) 40 mg DAILY SC Last administered on 02/14/17 08:19 ; Admin Dose 40 MG; Start 02/12/17 at 09:00; Status Future Hold Morphine Sulfate (morphine) 2 mg Q4H PRN IV PAIN Last administered on 11:21; Admin Dose 2 MG; Start 02/12/17 at 02:00 Ondansetron HCl (Zofran Inj) 4 mg Q4H PRN IV NAUSEA AND/OR VOMITING; Start at 02:00 Aspirin (Halfprin) 81 mg DAILY PO Last administered on 02/19/17 08:05; Admin Dose 81 MG; Start 02/12/17 at 09:00 Acetaminophen (Tylenol Tab) 650 mg Q6H PRN PO PAIN AND OR ELEVATED TEMP Last administered on 02/13/17 08:42; Admin Dose 650 MG; Start 02/12/17 at 02:00 Insulin Glargine (Lantus) 10 unit DAILY@08 SC Last administered on 02/19/17 08 :05; Admin Dose 10 UNIT; Start 02/12/17 at 08:00 Diagnostic Test (Pha) (Accu-Chek) 1 ea 02 XX ; Start 02/12/17 at 02:00 Miscellaneous Information 1 ea NOTE XX ; Start 02/12/17 at 03:00 Glucose (Glutose) 15 gm Q15M PRN PO DECREASED GLUCOSE; Start 02/12/17 at 03:00 Glucose (Glutose) 22.5 gm Q15M PRN PO DECREASED GLUCOSE; Start 02/12/17 at 03: 00 Dextrose (D50w Syringe) 25 ml Q15M PRN IV DECREASED GLUCOSE; Start 02/12/17 at 03:00 Dextrose (D50w Syringe) 50 ml Q15M PRN IV DECREASED GLUCOSE; Start 02/12/17 at 03:00 Glucagon (Glucagen) 1 mg Q15M PRN IM DECREASED GLUCOSE; Start 02/12/17 at 03:00 Glucose 15 gm 15 gm Q15M PRN BUCCAL DECREASED GLUCOSE; Start 02/12/17 at 03:00 Vancomycin HCl (Vancocin) 250 ml @ 125 mls/hr Q12H IVPB Last administered on 04:55; Admin Dose 125 MLS/HR; Start 02/13/17 at 17:30 GRADY MARTÍNEZ MD Feb 19, 2017 10:55
--- NOTE | 2017-02-19 12:21 | PN ---
Date/Time of Note Date/Time of Note DATE: 02/19/17 TIME: 12:18 Assessment/Plan VTE Prophylaxis VTE Prophylaxis Intervention: ambulation Lines/Catheters IV [facility]from [facility] [place] [facility] Urinary Cath still in place: No Assessment/Plan Chief Complaint/Hosp Course 1. Left hip cellulitis with SIRS, resolving 2. Dm type II controlled 3. Anemia 4. Proctitis. 5. hx of uterine cancer and s/p radiation. 6. Hypertension, controlled. 7 s/p colonoscopy Problems: Assessment/Plan 1. discharge with follow up with primary Md , Dr Gillis 2. Continue a/b Subjective 24 Hr Interval Summary Constitutional: no complaints Lymphatic: lymphadema (left hip) Exam/Review of Systems Vital Signs Vitals Vital Signs Date Time Temp Pulse Resp B/P Pulse Ox O2 Delivery O2 Flow Rate FiO2 02/19/17 07:25 98.8 86 18 129/69 97 02/18/17 11:07 Nasal Cannula 2.0 Intake and Output 02/18/17 02/18/17 02/19/17 15:00 23:00 07:00 Intake Total 500 ml 970 ml 450 ml Balance 500 ml 970 ml 450 ml Exam Constitutional: alert, oriented Eyes: nl conjunctiva ENMT: nl external ears & nose Neck: supple Respiratory: clear to auscultation Musculoskeletal: swelling (left hip) Results Result Diagram: 02/18/17 0430 02/19/17 0536 Results 24 hrs Laboratory Tests Test 02/18/17 17:24 02/18/17 20:51 02/19/17 05:36 02/19/17 08:03 Bedside Glucose 104 120 137 Sodium Level 144 Potassium Level 3.8 Chloride Level 104 Carbon Dioxide Level 28 Anion Gap 16 Blood Urea Nitrogen 7 Creatinine 0.60 Glucose Level 136 Calcium Level 8.1 L Test 02/19/17 12:05 Bedside Glucose 123 Medications Medications Current Medications Pantoprazole 40 mg 40 mg DAILY@06 PO Last administered on 02/19/17 06:19; Admin Dose 40 MG; Start 02/12/17 at 06:00 Ceftriaxone Sodium (Rocephin) 50 ml @ 100 mls/hr Q24H IVPB Last administered on 02/19/17 02:01; Admin Dose 100 MLS/HR; Start 02/12/17 at 02:00 Enoxaparin Sodium (Lovenox) 40 mg DAILY SC Last administered on 02/14/17 08:19 ; Admin Dose 40 MG; Start 02/12/17 at 09:00; Status Future Hold Morphine Sulfate (morphine) 2 mg Q4H PRN IV PAIN Last administered on 11:21; Admin Dose 2 MG; Start 02/12/17 at 02:00 Ondansetron HCl (Zofran Inj) 4 mg Q4H PRN IV NAUSEA AND/OR VOMITING; Start at 02:00 Aspirin (Halfprin) 81 mg DAILY PO Last administered on 02/19/17 08:05; Admin Dose 81 MG; Start 02/12/17 at 09:00 Acetaminophen (Tylenol Tab) 650 mg Q6H PRN PO PAIN AND OR ELEVATED TEMP Last administered on 02/13/17 08:42; Admin Dose 650 MG; Start 02/12/17 at 02:00 Insulin Glargine (Lantus) 10 unit DAILY@08 SC Last administered on 02/19/17 08 :05; Admin Dose 10 UNIT; Start 02/12/17 at 08:00 Diagnostic Test (Pha) (Accu-Chek) 1 ea 02 XX ; Start 02/12/17 at 02:00 Miscellaneous Information 1 ea NOTE XX ; Start 02/12/17 at 03:00 Glucose (Glutose) 15 gm Q15M PRN PO DECREASED GLUCOSE; Start 02/12/17 at 03:00 Glucose (Glutose) 22.5 gm Q15M PRN PO DECREASED GLUCOSE; Start 02/12/17 at 03: 00 Dextrose (D50w Syringe) 25 ml Q15M PRN IV DECREASED GLUCOSE; Start 02/12/17 at 03:00 Dextrose (D50w Syringe) 50 ml Q15M PRN IV DECREASED GLUCOSE; Start 02/12/17 at 03:00 Glucagon (Glucagen) 1 mg Q15M PRN IM DECREASED GLUCOSE; Start 02/12/17 at 03:00 Glucose 15 gm 15 gm Q15M PRN BUCCAL DECREASED GLUCOSE; Start 02/12/17 at 03:00 Vancomycin HCl (Vancocin) 250 ml @ 125 mls/hr Q12H IVPB Last administered on 04:55; Admin Dose 125 MLS/HR; Start 02/13/17 at 17:30 TARYN MAYEN Feb 19, 2017 12:21
--- NOTE | 2017-02-19 12:22 | PDOCDIS ---
Discharge Instructions DIAGNOSIS Discharge Diagnosis left leg lymphedema CONDITION Patient Condition: Good HOME CARE INSTRUCTIONS: Special Diet: 1800 nina 2gm Na+ diet ACTIVITY: Activity Restrictions: Slowly Increase Activity FOLLOW UP/APPOINTMENTS Follow-up Plan PCP 1 week SCHOOL/WORK RELEASE May return to School/Work with: With Restrictions TARYN MAYEN Feb 19, 2017 12:22
[2017-02-19] MEDS ORDERED: LANT3I SC (12:36)
[2017-02-19] MEDS ORDERED: SULF1TAB31 PO (12:36)
--- NOTE | 2017-02-19 15:04 | CONS ---
Date/Time of Note Date/Time of Note DATE: 02/19/17 TIME: 15:01 Assessment/Plan Assessment/Plan Chief Complaint/Hosp Course SUBJECTIVE DATA: No acute changes. alert, feels good, No fevers MICROBIOLOGY: Blood cultures remain negative. Urinalysis was negative for nitrite and leukocyte esterase. ANTIMICROBIALS: IV vancomycin and Rocephin. PHYSICAL EXAMINATION: GENERAL: This is a well-developed, well-nourished, middle-aged woman, who is awake, in no distress. HEENT: Head atraumatic, normocephalic. Sclerae anicteric. Buccal mucosa pink. NECK: Supple. CHEST: Rise symmetrical. Breath sounds clear. HEART: S1, S2. ABDOMEN: Soft, bowel sounds present. EXTREMITIES: Left lower extremity edema with erythema. ASSESSMENT: 1. Systemic inflammatory response syndrome with fevers and leukocytosis secondary number 2. 2. Left lower extremity cellulitis with chronic lymphedema==> no evidence of deep venous thrombosis (DVT) as per ultrasound. 3. Hypertension. 4. Diabetes. 5. Radiation proctitis PLAN: The patient remains stable, LLE looks better, erythema resolving, ok dc on po Bactrim for 7-10 days, continue LLE elevation, no malignancy per colonoscopy report RAMIRO RN Problems: Consultation Date/Type/Reason Admit Date/Time Feb 11, 2017 at 22:12 Initial Consult Date 02/12/17 Type of Consultation: id Exam/Review of Systems Vital Signs Vitals Vital Signs Date Time Temp Pulse Resp B/P Pulse Ox O2 Delivery O2 Flow Rate FiO2 02/19/17 07:25 98.8 86 18 129/69 97 02/18/17 11:07 Nasal Cannula 2.0 Intake and Output 02/18/17 02/18/17 02/19/17 15:00 23:00 07:00 Intake Total 500 ml 970 ml 450 ml Balance 500 ml 970 ml 450 ml Results Result Diagram: 02/18/17 0430 02/19/17 0536 Results 24 hrs Laboratory Tests Test 02/18/17 17:24 02/18/17 20:51 02/19/17 05:36 02/19/17 08:03 Bedside Glucose 104 120 137 Sodium Level 144 Potassium Level 3.8 Chloride Level 104 Carbon Dioxide Level 28 Anion Gap 16 Blood Urea Nitrogen 7 Creatinine 0.60 Glucose Level 136 Calcium Level 8.1 L Test 02/19/17 12:05 Bedside Glucose 123 JACQUELINE DOMINGUEZ NP Feb 19, 2017 15:03
--- NOTE | 2017-02-19 17:10 | RADRPT ---
Vent Rate: 89 bpm RR Interval: 0 msec IN Interval: 134 msec QRS Duration: 70 msec QT Interval: 376 msec QTC Interval: 457 msec P-R-T [place]: 59 - 36 - 31 degrees Normal sinus rhythm Cannot rule out Anterior infarct , age undetermined Abnormal ECG Electronically Signed By: Dimitry Christensen [id number]
--- NOTE | 2017-02-21 15:58 | DS ---
Date/Time of Note Date/Time of Note DATE: 02/21/17 TIME: 15:57 Discharge Summary Admission/Discharge Info Admit Date/Time Feb 11, 2017 at 22:12 Discharge Date/Time Feb 19, 2017 at 13:50 Discharge Diagnosis left leg lymphedema Patient Condition: Stable Consults Dr Kim, [place], Dr Leong, orthopedic surgeon, Dr Lemus Procedures Colonoscopy. Hx of Present Illness 56-year-old female with a history of diabetes mellitus presents to the emergency room for evaluation of left leg pain for 2 days. She has a history of cramps. She had a fever on and off for the past 2 days and has been taking Tylenol. She was admitted for cellulitis of the left thigh. Thee were swelling and local redness with SIRS. The ROM in left knee and thigh not limited, venous system without abnormalities. Antibiotics were started , redness decreased but swelling persists. Pt reported that she had left thigh I and D procedure at [place] where she was hospitalized for the abscess. Additionally patient reported that she had an uterine cancer, hysterectomy with consecutive radiation 15 [address] ago. On the CT scan there were found thickness of the rectal pitts, suspicious inflammation or neoplasm. Dr Lemus interrogated pt with a colonoscopy. NO neoplasm were found, only radiating proctitis. After course of antibiotic were finished, pt was discharged home. There is still edema left on the left thigh, due the resection of the lymph nodes after hysterectomy. Hospital Course SUBJECTIVE DATA: No acute changes. alert, feels good, No fevers MICROBIOLOGY: Blood cultures remain negative. Urinalysis was negative for nitrite and leukocyte esterase. ANTIMICROBIALS: IV vancomycin and Rocephin. PHYSICAL EXAMINATION: GENERAL: This is a well-developed, well-nourished, middle-aged woman, who is awake, in no distress. HEENT: Head atraumatic, normocephalic. Sclerae anicteric. Buccal mucosa pink. NECK: Supple. CHEST: Rise symmetrical. Breath sounds clear. HEART: S1, S2. ABDOMEN: Soft, bowel sounds present. EXTREMITIES: Left lower extremity edema with erythema. ASSESSMENT: 1. Systemic inflammatory response syndrome with fevers and leukocytosis secondary number 2. 2. Left lower extremity cellulitis with chronic lymphedema==> no evidence of deep venous thrombosis (DVT) as per ultrasound. 3. Hypertension. 4. Diabetes. 5. Radiation proctitis PLAN: The patient remains stable, LLE looks better, erythema resolving, ok dc on po Bactrim for 7-10 days, continue LLE elevation, no malignancy per colonoscopy report DW RN Home Meds Active Scripts Sulfamethoxazole/Trimethoprim* (Bactrim Ds* Tablet) 1 Each Tablet, 1 TAB PO BID for 7 Days, TAB Prov:TARYN MAYEN 02/19/17 Insulin Glargine* (Lantus*) 100 Unit/Ml Soln, 10 UNIT SC DAILY@08 for 30 Days Prov:TARYN MAYEN 02/19/17 Reported Medications Acetaminophen* (Acetaminophen*) 500 MG Extra Strength Tablet, 1000 MG PO Q4H Y for PAIN AND OR ELEVATED TEMP, TAB 02/11/17 Aspirin* (Aspirin* EC) 81 Mg Tablet., 81 MG PO DAILY, TAB 02/11/17 Insulin Human Regular (Novolin-R U-100) 100 Unit/Ml Soln, 0 SC AC BREAKFAST DINNER, EA QAM:15 units : PM : 8units 02/11/17 Follow-up Plan PCP 1 week, finish antibiotics and start activities gradually Primary Care Provider TARYN Reaves Feb 21, 2017 15:58
== END 2017-02-19 13:50 | disposition home or self-care (01) | DRG 603 ==
LOC: FTE 19:31 → MS2 22:12
PROVIDERS: ADMIT Internal Medicine Nephrology; ATTEND Internal Medicine Nephrology
PROC: 0DJD8ZZ Inspection of Lower Intestinal Tract, Via Natural or Artificial Opening Endoscopic (ICD-10-PCS; principal; 2017-02-18 16:30)
DX: L03.116 Cellulitis of left lower limb (principal); D69.6 Thrombocytopenia, unspecified; K76.0 Fatty (change of) liver, not elsewhere classified; K62.7 Radiation proctitis; I10 Essential (primary) hypertension; E11.9 Type 2 diabetes mellitus without complications; D64.9 Anemia, unspecified; I89.0 Lymphedema, not elsewhere classified; E86.0 Dehydration; Z79.4 Long term (current) use of insulin; Z85.42 Personal history of malignant neoplasm of other parts of uterus
CPT/HCPCS: 71010; 73550; 73700; 74176; 80048; 80053; 80202; 81001; 82962; 83036; 83605; 83690; 85025; 87040; 93005; 93971; 96361; 96365; 96366; 96375; J0696; J1650; J1815; J1885; J2250; J2270; J2543; J3010; J3370; J3480; J7030; Q9967

== ENCOUNTER 2019-03-15 09:53 | Day surgery (SDC) | payer BC ==
[~2019-03-15] VITALS: Ht 152.4 cm; Wt 53.5 kg
[2019-03-15] VITALS (14 sets, daily range): BP systolic 114–155; BP diastolic 52–74; PULSE 84–100; RESP 13–23; Ht 152.4 cm; Wt 53.5 kg
[~2019-03-15 09:53] MED LIST changes: +ACET-141 PO; +ASPI-817 PO; +BENA40TA56 ORAL; +CEFAZOLIN 2 GM/50 ML (PMX) 50 ML IVPB SCH; -DICY10CA60 PO; -FENO48TA4 PO; -FER325 PO; +HUM100IN4 SC; +LANT3I SC; -ONDA4TAB14 PO; +SOD CHLORIDE 0.9% 1,000 ML IV SCH; +SS SC; +SULF1TAB31 PO
[2019-03-15] MEDS ORDERED: BUPIVACAINE 0.5%/EPI (SDV) 30 ML INJ ONE (15:05)
[2019-03-15] MEDS ORDERED: SUCCINYLCHOLINE CHLORIDE 100 MG/5 ML SYG IV ONE (15:13)
[2019-03-15] MEDS ORDERED: NEOSTIGMINE 3 MG/3 ML SYRINGE ONE (15:13)
[2019-03-15] MEDS ORDERED: MEPERIDINE 100 MG INJ ONE (15:13)
[2019-03-15] MEDS ORDERED: PROPOFOL 20 ML ONE (15:13)
[2019-03-15] MEDS ORDERED: ROCURONIUM 50 MG INJ ONE (15:13)
[2019-03-15] MEDS ORDERED: GLYCOPYRROLATE 0.4 MG INJ ONE (15:13)
[2019-03-15] MEDS ORDERED: LIDOCAINE 2% (SDV) 5 ML INJ ONE (15:13)
[2019-03-15] MEDS ORDERED: METOCLOPRAMIDE 10 MG INJ IV PRN (16:00)
[2019-03-15] MEDS ORDERED: EPHEDrine 25 MG/5 ML SYG IV PRN (16:00)
[2019-03-15] MEDS ORDERED: HYDROmorphONE 1 MG/5 ML IV SYRINGE IV PRN ×3 (16:00)
[2019-03-15] MEDS ORDERED: MIDAZOLAM 1 MG/ML 2 ML INJ IV PRN (16:00)
[2019-03-15] MEDS ORDERED: LABETALOL HCL 20MG INJ IV PRN (16:00)
[2019-03-15] MEDS ORDERED: DIPHENHYDRAMINE 50 MG INJ IV PRN (16:00)
[2019-03-15] MEDS ORDERED: hydrALAzine 20 MG INJ IV PRN (16:00)
[2019-03-15] MEDS ORDERED: FENTAnyl 50 MCG/ML VIAL IV PRN ×3 (16:00)
[2019-03-15] MEDS ORDERED: OXYCODONE/ACETAMINOPHEN (5/325) TAB PO PRN ×2 (16:00)
[2019-03-15] MEDS ORDERED: MEPERIDINE 25 MG INJ IV PRN (16:00)
[2019-03-15] MEDS ORDERED: ONDANSETRON 4 MG INJ IV PRN ×2 (16:00→16:30)
[2019-03-15] MEDS ORDERED: ONDANSETRON 4 MG INJ ONE (16:06)
[2019-03-15] MEDS ORDERED: CEFAZOLIN 1 GM INJ ONE (16:06)
[2019-03-15] MEDS ORDERED: METOCLOPRAMIDE 10 MG INJ ONE (16:06)
[2019-03-15] MEDS ORDERED: morphine 2 MG INJ IV PRN (16:30)
[2019-03-15] MEDS ORDERED: HYDROCODONE/APAP (5/325) TAB PO PRN ×2 (16:30)
[2019-03-15] MEDS ORDERED: KETOROLAC 30 MG INJ IV PRN (16:30)
[2019-03-15] MEDS ORDERED: IBUPROFEN 600 MG TAB PO PRN (16:30)
== END 2019-03-15 18:45 | disposition home or self-care (01) ==
LOC: SDS 09:53
PROVIDERS: ATTEND Surgery
DX: K80.10 Calculus of gallbladder with chronic cholecystitis without obstruction (principal); I10 Essential (primary) hypertension; E11.9 Type 2 diabetes mellitus without complications; Z79.82 Long term (current) use of aspirin; Z79.4 Long term (current) use of insulin
CPT/HCPCS: 47562; 71045; 82962; 88304; 93005; J0690; J1170; J1885; J2175; J2405; J2710; J2765; J3010; Z7512; Z7610